=== PATIENT | female | born 1950 | race Caucasian/White ===

== ENCOUNTER 2020-12-12 22:41 | Emergency (ER) | payer MEDICARE, OTHER ==
[~2020-12-12] VITALS: Ht 167.6 cm; Wt 65.9 kg
[2020-12-12] MEDS ORDERED: fentaNYL PF VIAL 100 MCG/2 ML VIAL IVP ONE (22:45)
[2020-12-12 23:29] LABS: BILIRUBIN,URINE NEGATIVE (NEG); CLARITY,URINE CLEAR; COLOR,URINE YELLOW; NITRITE,URINE NEGATIVE (NEG); PH,URINE 6.5 (<5.0-8.0); PROTEIN,URINE NEGATIVE (NEG-TRACE); UROBILINOGEN,URINE 0.2 mg/dL (0.2 mg/dL)
[2020-12-12 23:30] LABS: BASO # 0.1 x10^3/uL (0.0-0.2); BASO % 1 % (0-3); EOS # 0.4 x10^3/uL (0.0-0.7); EOS % 5 % (0-3); HEMATOCRIT 38.6 % (36.0-47.0); LYMPH # 2.1 x10^3/uL (1.0-4.8); LYMPH % 27 % (24-48); MEAN CORPUSCULAR HEMOGLOBIN 31 pg (25-35); MEAN CORPUSCULAR HGB CONC 34 g/dL (31-37); MEAN CORPUSCULAR VOLUME 93 fL (79-100); MONO # 0.9 x10^3/uL (0.0-1.1); MONO % 11 % (0-9); NEUT # 4.4 x10^3/uL (1.8-7.7); NEUT % 56 % (31-73); PLATELET COUNT 190 x10^3/uL (140-400); RED BLOOD COUNT 4.15 x10^6/uL (3.50-5.40); RED CELL DISTRIBUTION WIDTH 13.3 % (11.5-14.5); WHITE BLOOD COUNT 7.9 x10^3/uL (4.0-11.0)
[2020-12-12 23:34] LABS: AMPHETAMINE/METHAMPHETAMINE NEG (NEG); BARBITURATES NEG (NEG); BENZODIAZEPINES NEG (NEG); CANNABINOIDS NEG (NEG); COCAINE NEG (NEG); METHADONE NEG (NEG); OPIATES NEG (NEG); PHENCYCLIDINE NEG (NEG)
[2020-12-12 23:35] LABS: BACTERIA,URINE 0 /HPF (0-FEW); CALCIUM 10.3 mg/dL (8.5-10.1); CREATININE 1.3 mg/dL (0.6-1.0); GFR 40.7; POTASSIUM 3.7 mmol/L (3.5-5.1); RBC,URINE OCC /HPF (0-2)
[2020-12-12 23:39] LABS: PROTHROMBIN TIME PATIENT 14.6 SEC (11.7-14.0)
--- NOTE | 2020-12-12 23:58 | PHYS DOC ---
Past Medical History Past Medical History: Anxiety, Dementia, Depression, Hypertension Past Surgical History: Cholecystectomy, Hysterectomy Additional Past Surgical Histo: BILATERAL SHOULDER REPLACEMENT, LOWER BACK Smoking Status: Current Every Day Smoker Alcohol Use: None Adult General Chief Complaint Chief Complaint: SHORTNESS OF BREATH HPI HPI Patient is a 70 year old female with an extensive past medical history which is include dementia, hypertension, depression anxiety now presenting the emergency department complaining of right-sided chest pain after a fall. Patient states that she was attempting to get into her chair with her dog when she tripped over her dog and fell onto a wooden floor. Patient notes that she struck the right side of her head and the right side of her chest. Denies any loss of consciousness, blurred vision, numbness or weakness. Denies any back pain, neck pain, abdominal pain. Review of Systems Review of Systems Constitutional: Denies fever or chills [] Eyes: Denies change in visual acuity, redness, or eye pain [] HENT: Denies nasal congestion or sore throat [] Respiratory: Denies cough or shortness of breath [] Cardiovascular: No additional information not addressed in HPI [] GI: Denies abdominal pain, nausea, vomiting, bloody stools or diarrhea [] : Denies dysuria or hematuria [] Musculoskeletal: Denies back pain or joint pain [] Integument: Denies rash or skin lesions [] Neurologic: Denies headache, focal weakness or sensory changes [] Endocrine: Denies polyuria or polydipsia [] All other systems were reviewed and found to be within normal limits, except as documented in this note. Current Medications Current Medications Current Medications Medications (Trade) Dose Ordered Sig/Kim Start Time Stop Time Status Last Admin Dose Admin Fentanyl Citrate (Fentanyl 2ml Vial) 25 mcg 1X ONCE 12/12/20 22:45 12/12/20 23:22 DC 12/12/20 23:26 25 MCG Info (CONTRAST GIVEN -- Rx MONITORING) 1 each PRN DAILY PRN 12/13/20 00:15 12/15/20 00:14 Iohexol (Omnipaque 300 Mg/ml) 60 ml 1X ONCE 12/13/20 00:15 12/13/20 00:16 DC 12/13/20 00:30 60 ML Allergies Allergies Allergies Coded Allergies Type Severity Reaction Last Updated Verified Unable to Assess 12/12/20 No Physical Exam Physical Exam Constitutional: Well developed, well nourished, no acute distress, non-toxic appearance. [] HENT: Normocephalic, 1 cm right eyebrow laceration, bilateral external ears normal, oropharynx moist, no oral exudates, nose normal. [] Eyes: PERRLA, EOMI, conjunctiva normal, no discharge. [] Neck: Normal range of motion, no tenderness, supple, no stridor. [] Cardiovascular:Heart rate regular rhythm, no murmur [] Lungs & Thorax: Bilateral breath sounds clear to auscultation significant right lower anterior chest wall tenderness Abdomen: Bowel sounds normal, soft, no tenderness, no masses, no pulsatile masses. [] Skin: Warm, dry, no erythema, no rash. [] Back: No tenderness, no CVA tenderness. [] Extremities: No tenderness, no cyanosis, no clubbing, ROM intact, no edema. [] Neurologic: Alert and oriented X 3, normal motor function, normal sensory funct ion, no focal deficits noted. [] Psychologic: Affect normal, judgement normal, mood normal. [] Current Patient Data Vital Signs Vital Signs Date Time Temp Pulse Resp B/P (MAP) Pulse Ox O2 Delivery O2 Flow Rate FiO2 12/12/20 23:26 Room Air 12/12/20 23:05 98.2 73 18 158/105 (122) 99 98.2 Lab Values Laboratory Tests Test 12/12/20 23:18 12/12/20 23:23 White Blood Count 7.9 x10^3/uL (4.0-11.0) Red Blood Count 4.15 x10^6/uL (3.50-5.40) Hemoglobin 13.0 g/dL (12.0-15.5) Hematocrit 38.6 % (36.0-47.0) Mean Corpuscular Volume 93 fL (79-100) Mean Corpuscular Hemoglobin 31 pg (25-35) Mean Corpuscular Hemoglobin Concent 34 g/dL (31-37) Red Cell Distribution Width 13.3 % (11.5-14.5) Platelet Count 190 x10^3/uL (140-400) Neutrophils (%) (Auto) 56 % (31-73) Lymphocytes (%) (Auto) 27 % (24-48) Monocytes (%) (Auto) 11 % (0-9) H Eosinophils (%) (Auto) 5 % (0-3) H Basophils (%) (Auto) 1 % (0-3) Neutrophils # (Auto) 4.4 x10^3/uL (1.8-7.7) Lymphocytes # (Auto) 2.1 x10^3/uL (1.0-4.8) Monocytes # (Auto) 0.9 x10^3/uL (0.0-1.1) Eosinophils # (Auto) 0.4 x10^3/uL (0.0-0.7) Basophils # (Auto) 0.1 x10^3/uL (0.0-0.2) Prothrombin Time 14.6 SEC (11.7-14.0) H Prothrombin Time INR 1.2 (0.8-1.1) H Activated Partial Thromboplast Time 33 SEC (24-38) Urine Collection Type Unknown Urine Color Yellow Urine Clarity Clear Urine pH 6.5 (<5.0-8.0) Urine Specific [place] 1.015 (1.000-1.030) Urine Protein Negative mg/dL (NEG-TRACE) Urine Glucose (UA) Negative mg/dL (NEG) Urine Ketones (Stick) Negative mg/dL (NEG) Urine Blood Negative (NEG) Urine Nitrite Negative (NEG) Urine Bilirubin Negative (NEG) Urine Urobilinogen Dipstick 0.2 mg/dL (0.2 mg/dL) Urine Leukocyte Esterase Negative (NEG) Urine RBC Occ /HPF (0-2) Urine WBC 1-4 /HPF (0-4) Urine Squamous Epithelial Cells Occ /LPF Urine Bacteria 0 /HPF (0-FEW) Urine Mucus Slight /LPF Sodium Level 145 mmol/L (136-145) Potassium Level 3.7 mmol/L (3.5-5.1) Chloride Level 108 mmol/L (98-107) H Carbon Dioxide Level 31 mmol/L (21-32) Anion Gap 6 (6-14) Blood Urea Nitrogen 33 mg/dL (7-20) H Creatinine 1.3 mg/dL (0.6-1.0) H Estimated GFR (Cockcroft-Gault) 40.7 Glucose Level 81 mg/dL (70-99) Calcium Level 10.3 mg/dL (8.5-10.1) H Urine Opiates Screen Neg (NEG) Urine Methadone Screen Neg (NEG) Urine Barbiturates Neg (NEG) Urine Phencyclidine Screen Neg (NEG) Urine Amphetamine/Methamphetamine Neg (NEG) Urine Benzodiazepines Screen Neg (NEG) Urine Cocaine Screen Neg (NEG) Urine Cannabinoids Screen Neg (NEG) Ethyl Alcohol Level < 10 mg/dL (0-10) Urine Ethyl Alcohol Neg (NEG) POC Troponin I 0.00 ng/ml (<0.08) Laboratory Tests 12/12/20 23:18 Laboratory Tests 12/12/20 23:18 EKG EKG Right axis deviation, prominent S wave in V3 through V6 which could demonstrate old cardiac scar tissue, currently no ST or T wave changes, no QRS widening, segments normal, no evidence of STEMI Radiology/Procedures Radiology/Procedures See radiology report Course & Med Decision Making Course & Med Decision Making Pertinent Labs and Imaging studies reviewed. (See chart for details) 70F presenting with right eyebrow laceration and right-sided chest pain after mechanical fall. At this time obtain a CT head to make sure there is no intracranial injury. C-spine is cleared by Nexus criteria. Also obtain CT scan of the chest to make sure there is no intrathoracic injury or rib fracture. 0054-CT head negative for any intracranial injury or skull fracture. CT scan of the chest does demonstrate evidence of a mild, nondisplaced rib fracture. I had an extensive discussion with the patient and at this time plan to discharge home with pain control. I spoken with the patient and her caregivers. I explained the patient's condition, diagnoses and treatment plan based on the information available to me at this time. I have answered the patient and her caregiver's questions and addressed any concerns. The patient and her caregivers have a good understanding of patient's diagnosis, condition and treatment plan as can be expected at this point. Vital signs have been stable. Patient's condition is stable and appropriate for discharge from the emergency department. Patient will pursue further outpatient evaluation with primary care physician or other designated or consulting physician as outlined in the discharge instructions. The patient and/or caregivers are agreeable to this plan of care and follow-up instructions have been explained in detail. The patient and/or caregivers have received these instructions in written form and have expressed an understanding of the discharge instructions. The patient and/or caregivers are aware that any significant change of condition or worsening of symptoms should prompt immediate return to this or the closest emergency department or call to 911. Lynn Disclaimer Dragon Disclaimer This electronic medical record was generated, in whole or in part, using a voice recognition dictation system. Departure Departure Impression: Primary Impression: Right rib fracture Disposition: 01 DC HOME SELF CARE/HOMELESS Condition: GOOD Referrals: TOMASZ LORENZO NP (PCP) Patient Instructions: Rib Fracture Additional Instructions: EMERGENCY DEPARTMENT GENERAL DISCHARGE INSTRUCTIONS Thank you for coming to [facility] Emergency Department (ED) today and trusting us with you care. We trust that you had a positive experience in our Emergency Department. If you wish to speak to the department management, you may call the Director at [phone]. YOUR FOLLOW UP INSTRUCTIONS ARE FOLLOWS: 1. Do you have a private Doctor? If you do not have a private doctor, please ask for a resource list of physicians or clinics that may be able to assist you with follow up care. 2. The Emergency Physicain has interpreted your x-rays. The X-Ray specialist will also review them. If there is a change in the findings, you will be notified in 48 hours when at all possible. 3. A lab test or culture has been done, your results will be reviewed and you will be notified if you need a change in treatment. ADDITIONAL INSTRUCTIONS AND INFORMATION: 1. Your care today has been supervised by a physician who is specially trained in emergency care. Many problems require more than one evaluation for a complete diagnosis and treatment. We recommend that you schedule your follow up appointment as recommended to ensure complete treatment of you illness or injury. If you are unable to obtain follow up care and continue to have a problem, or if your condition worsens, we recommend that you return to the ED. 2. We are not able to safely determine your condition over the phone nor are we able to give sound medical advice over the phone. For these safety reasons, if you call for medical advice we will ask you to come to the ED for further evaluation. 3. If you have any questions regarding these discharge instructions please call the ED at [phone]. SAFETY INFORMATION: In the interest of safety, wellness, and injury prevention; we encourage you to wear your sealbelt, if you smoke; quite smoking, and we encourage family to use a protective helmet for bicycling and other sporting events that present an increased risk for head injury. IF YOUR SYMPTOMS WORSEN OR NEW SYMPTOMS DEVELOP, OR YOU HAVE CONCERNS ABOUT YOUR CONDITION; OR IF YOUR CONDITION WORSENS WHILE YOU ARE WAITING FOR YOUR FOLLOW UP APPOINTMENT; EITHER CONTACT YOUR PRIMARY CARE DOCTOR, THE PHYSICIAN WHOSE NAME AND NUMBER YOU WERE GIVEN, OR RETURN TO THE ED IMMEDIATELY. Scripts Oxycodone/Apap 5-325 (PERCOCET 5-325 MG TABLET ) 1 Each Tablet 1 TAB PO PRN Q6HRS PRN for PAIN, #12 TAB 0 Refills Prov: YAMILA PATTEN MD 12/13/20 YAMILA PATTEN MD Dec 12, 2020 23:58
[2020-12-13] MEDS ORDERED: CONTRAST GIVEN. MC PRN (00:15)
[2020-12-13] MEDS ORDERED: IOHEXOL 300 MG/ML 100ML VIAL. IV ONE (00:15)
--- NOTE | 2020-12-13 00:36 | RAD ---
PQRS Compliance Statement: One or more of the following individualized dose reduction techniques were utilized for this examinat ion: 1. Automated exposure control 2. Adjustment of the mA and/or kV according to patient size 3. Use of iterative reconstruction technique CT HEAD WITHOUT CONTRAST History: Reason: fall / Spl. Instructions: / History: Comparison: None. Technique: Axial images are obtained of the head from the skull base through the vertex without IV co ntrast. Findings: No mass-effect, midline shift, extra-axial fluid collection, hemorrhage, or obvious acute infarction is identified. Basilar cisterns are patent. The ventricles and sulci are prominent, consistent with age-related cerebral atrophy. There is perive ntricular white matter hypoattenuation. This is a nonspecific finding but is commonly due to chronic small vessel ischemic disease. Bone windows demonstrate no acute calvarial abnormality. The visualized paranasal sinuses are clear. Mastoid air cells are well aerated. IMPRESSION: 1. No acute intracranial abnormality. 2. Age-related cerebral atrophy and periventricular white matter changes probably due to chronic sma ll vessel ischemic disease. Electronically signed by: Sánchez Whitaker MD (12/13/2020 12:33 AM) [facility]
--- NOTE | 2020-12-13 00:45 | RAD ---
PQRS Compliance Statement: One or more of the following individualized dose reduction techniques were utilized for this examinat ion: 1. Automated exposure control 2. Adjustment of the mA and/or kV according to patient size 3. Use of iterative reconstruction technique CT THORAX WO/W Clinical Indication: Reason: fall, RT SIDE RIB PAIN, Comparison: None. TECHNIQUE: Helical CT imaging of the chest is performed before and after 60 cc of Omnipaque 300 IV co ntrast. Findings: No acute intramural hematoma of the aorta is identified on the precontrast images. There is no thorac ic aortic dissection. There is a possible nodule of the lateral subareolar right breast measuring 1.9 cm. There are subcent imeter mediastinal lymph nodes. There is no adenopathy. There are no enlarged hilar lymph nodes. Ther e is no central pulmonary embolus. There is coronary artery disease. The cardiac size is normal, no p ericardial effusion. There is no pleural abnormality. The central airways are patent. Mild paraseptal emphysema. There is minimal bilateral dependent atelectasis. There is no pulmonary contusion. Cholecystectomy. There is cortical thinning of the visualized kidneys. There is a 2 cm hypodensity of the posterior right kidney that is not definitely a cyst. There are sub-5 mm bilateral nonobstructin g renal calculi versus medullary nephrocalcinosis. There is a 9 mm hypodensity in the right hepatic l obe, too small to further characterize, image 55. There are bilateral shoulder arthroplasties, incompletely imaged. An acute displaced rib fracture is not identified. Question subtle nondisplaced right anterolateral sixth rib fracture. There is degener ative endplate spurring of the thoracic spine. Thoracic spine alignment is maintained. IMPRESSION: 1. Question subtle nondisplaced right anterolateral sixth rib fracture. 2. Lungs essentially clear. 3. Possible nodule of the lateral subareolar right breast. Recommend outpatient bilateral diagnostic mammogram if not recently performed. 4. There is a 2 cm hypodensity of the posterior right kidney that is not definitely a cyst. Recommen d outpatient renal ultrasound. Electronically signed by: Sánchez Whitaker MD (12/13/2020 12:43 AM) [facility]
[2020-12-13] MEDS ORDERED: OXYC1TAB15 PO (00:57)
[2020-12-13] MEDS ORDERED: MORPHINE SULFATE 4 MG/ML VIAL. IV ONE (01:00)
[2020-12-13 01:25] VITALS: BP 155/66
== END 2020-12-13 01:39 | disposition home or self-care (01) ==
LOC: ER 22:41
DX: S22.31XA Fracture of one rib, right side, initial encounter for closed fracture (principal); F41.9 Anxiety disorder, unspecified; F03.90 Unspecified dementia, unspecified severity, without behavioral disturbance, psychotic disturbance, mood disturbance, and anxiety; F32.9 Major depressive disorder, single episode, unspecified; I10 Essential (primary) hypertension; F17.200 Nicotine dependence, unspecified, uncomplicated; Z90.49 Acquired absence of other specified parts of digestive tract; Z90.710 Acquired absence of both cervix and uterus; Z98.890 Other specified postprocedural states; W01.0XXA Fall on same level from slipping, tripping and stumbling without subsequent striking against object, initial encounter; Y93.89 Activity, other specified; Y92.89 Other specified places as the place of occurrence of the external cause; Y99.8 Other external cause status
CPT/HCPCS: 36415; 70450; 71270; 80048; 80307; 81001; 84484; 85025; 85610; 85730; 86850; 86900; 86901; 96374; 96375; 99285; G0480; J2270; J3010; Q9967

== ENCOUNTER 2021-06-12 10:58 | Emergency (ER) | payer MEDICARE ==
[~2021-06-12] VITALS: Ht 167.6 cm; Wt 58.0 kg
[~2021-06-12 10:58] MED LIST: OXYC1TAB15 PO
--- NOTE | 2021-06-12 12:41 | RAD ---
CT scan of the head without contrast 09/12/2021 Clinical History: Head injury. Technique: Unenhanced, contiguous, 5 mm axial sections were obtained through the head. One or more of the following individualized dose reduction techniques were utilized for this study: 1. Automated exposure control. 2. Adjustment of the mA and/or kV according to patient size. 3. Use of iterative reconstruction technique. Findings: Comparison study is dated 12/13/2020. There is generalized parenchymal atrophy. Areas of decreased attenuation are seen within the perivent ricular and subcortical white matter of both cerebral hemispheres consistent with areas of small vess el ischemic disease. No acute parenchymal abnormality is seen. No extra-axial fluid collection is not ed. No skull fracture is seen. Impression: No acute intracranial abnormality is seen. Electronically signed by: Ney James MD (06/12/2021 12:39 PM) [id number]
--- NOTE | 2021-06-12 12:53 | ED.ADGEN ---
Past Medical History Past Medical History: Anxiety, Dementia, Depression, Hypertension Past Surgical History: Cholecystectomy, Hysterectomy, Other Additional Past Surgical Histo: BILATERAL SHOULDER REPLACEMENT, LOWER BACK, L knee Smoking Status: Never Smoker Alcohol Use: None General Adult EDM: Chief Complaint: MECHANICAL FALL HPI: HPI: Patient is a 71 year old [f__sex] who presents with [] Review of Systems: Review of Systems: Complete ROS is negative unless otherwise documented in HPI Current Medications: Current Medications Medications (Trade) Dose Ordered Sig/Kim Start Time Stop Time Status Last Admin Dose Admin Acetaminophen (Tylenol) 650 mg 1X ONCE 06/12/21 13:30 06/12/21 13:31 DC 06/12/21 13:23 650 MG Diphtheria/ Tetanus/Acell Pertussis (ADACEL TDap SYRINGE) 0.5 ml ONCE ONCE 06/12/21 13:00 06/12/21 13:01 DC 06/12/21 13:17 0.5 ML Allergies: Allergies: Allergies Coded Allergies Type Severity Reaction Last Updated Verified Penicillins Allergy Unknown 06/12/21 Yes Physical Exam: PE: General: Awake, alert, NAD. Well Nourished, well hydrated. Cooperative HEENT: V-shaped laceration to left forehead with minimal oozing, EOMI, PERRL, airway patent, moist oral mucosa, no nasal septal hematoma, no facial crepitus or deformity Neck: Supple, trachea midline, no C-spine tenderness Respiratory: CTA bilaterally, normal effort, no wheezing/crackles, no crepitus CV: RRR, no murmur, cap refill <2, 2+ bilateral radial/DP pulses GI: Soft, nondistended, nontender, no masses MSK: No deformities, pelvis stable and nontender Skin: Warm, dry, abrasion to left elbow, abrasion to right knee Neuro: A&O x3, speech NL, sensory and motor grossly intact, no focal deficits Psych: Normal affect, normal mood, not suicidal or homicidal Current Patient Data: Vital Signs: Vital Signs Date Time Temp Pulse Resp B/P (MAP) Pulse Ox O2 Delivery O2 Flow Rate FiO2 06/12/21 13:35 68 16 160/86 (110) 98 Room Air 06/12/21 11:40 98.2 98.2 EKG: EKG: [] Heart Score: C/O Chest Pain: N/A Risk Factors: Risk Factors: DM, Current or recent (<one month) smoker, HTN, HLP, family history of CAD, obesity. Risk Scores: Score 0 - 3: 2.5% MACE over next 6 weeks - Discharge Home Score 4 - 6: 20.3% MACE over next 6 weeks - Admit for Clinical Observation Score 7 - 10: 72.7% MACE over next 6 weeks - Early Invasive Strategies Radiology/Procedures: Radiology/Procedures: [] Course & Med Decision Making: Course & Med Decision Making Pertinent Labs and Imaging studies reviewed. (See chart for details) Patient is a 71yo elderly female who presents to the ED after a mechanical fall from standing. On exam, patient has a laceration to the forehead. Due to patient's age and head trauma they cannot be ruled out with bulgarian CT head rule and will need a CT head to evaluate for intracranial bleed and a CT cervical spine. No signs of major facial injuries and a CT maxillofacial is not needed at this time. Patient did not have any symptoms concerning for a presyncopal episode. They deny chest pain, palpitations, dizziness, headache, shortness of breath, recent bleeding, numbness/weakness in extremities or face. They do not need a syncope work up at this time. CT is negative. Tetanus was updated. Wounds were cleaned and covered. Dermabond was placed on laceration. Patient's test results and vitals while in the ED were fully reviewed and discussed with the patient. Patient is stable and at this time does not need admission to the hospital. We have discussed strict return precautions and the importance of following up with their Primary Care Physician. Patient stated understanding and was given an opportunity to ask any questions. Patient is in agreement with plan. Dragon Disclaimer: Dragmisty Disclaimer: This electronic medical record was generated, in whole or in part, using a voice recognition dictation system. PROCEDURE Procedure Laceration Repair Performed by: Melissa Stoner MD Consent: obtained verbally from patient. Risks and benefits were discussed prior to consent Time out performed prior to procedure Location: Left forehead Length: 2 Foreign bodies: No foreign bodies Tendon involvement: none Neurovascularly intact Preparation: Patient was prepped and draped in usual sterile fashion. Wound was cleaned extensively with water Amount of clean: normal Deep stitches: no Skin closure: dermabond Approximation: closed Patient tolerated procedure well Departure Departure Impression: Primary Impression: Closed head injury Disposition: HOME / SELF CARE / HOMELESS Condition: STABLE Referrals: TOMASZ LORENZO NP (PCP) Patient Instructions: Head Injury, Adult, Laceration Care, Adult MELISSA STONER MD Jun 12, 2021 12:53
[2021-06-12] MEDS ORDERED: DIPH,PERTUSS(ACELL),TET VAC/PF 0.5 ML SYRINGE. VAX IM ONE (13:00)
[2021-06-12] MEDS ORDERED: ACETAMINOPHEN 325 MG TABLET. PO ONE (13:30)
[2021-06-12 13:35] VITALS: BP 160/86
== END 2021-06-12 13:45 | disposition home or self-care (01) ==
LOC: ER 10:58
DX: S01.81XA Laceration without foreign body of other part of head, initial encounter (principal); I10 Essential (primary) hypertension; F03.90 Unspecified dementia, unspecified severity, without behavioral disturbance, psychotic disturbance, mood disturbance, and anxiety; Z88.0 Allergy status to penicillin; Y28.8XXA Contact with other sharp object, undetermined intent, initial encounter; Y93.89 Activity, other specified; Y92.89 Other specified places as the place of occurrence of the external cause; Y99.8 Other external cause status
CPT/HCPCS: 12011; 70450; 90471; 90715; 99284-25

== ENCOUNTER → 2021-06-24 | Outpatient (CLI) | payer MEDICARE ==
[2021-06-12 13:35] VITALS: BP 160/86
--- NOTE | 2021-06-24 12:53 | RAD ---
EXAM: Right knee, 3 views. HISTORY: Pain. COMPARISON: None. FINDINGS: 3 views of the right knee are obtained. There is medial compartment joint space narrowing a nd moderate medial compartment spurring. There is medial and lateral compartment chondrocalcinosis. T here is a small joint effusion. IMPRESSION: 1. Moderate medial compartment predominant osteoarthritis of the right knee with small joint effusion . 2. No acute osseous finding. Electronically signed by: Liz Dodd MD (06/24/2021 12:51 PM) [id number]
== END ==
LOC: RAD 11:58
PROVIDERS: ATTEND Family Medicine
DX: M17.11 Unilateral primary osteoarthritis, right knee (principal); M25.461 Effusion, right knee; M25.861 Other specified joint disorders, right knee; M76.891 Other specified enthesopathies of right lower limb, excluding foot; M11.261 Other chondrocalcinosis, right knee; M25.561 Pain in right knee
CPT/HCPCS: 73562

== ENCOUNTER 2022-01-24 20:26 | Inpatient (IN) | payer MEDICARE ==
[~2022-01-24] VITALS: Ht 167.6 cm; Wt 56.8 kg
[2022-01-24] MEDS ORDERED: cefTRIAXone IV Push 1 GM VIAL. IVP ONE (20:45)
[2022-01-24] MEDS ORDERED: ACETAMINOPHEN 650 MG SUPP.RECT. PR ONE (20:45)
[2022-01-24] MEDS ORDERED: IV NORMAL SALINE 1000ML BAG 1,000 ML IV ONE (20:45)
[2022-01-24 20:54] LABS: BILIRUBIN,URINE NEGATIVE (NEG); CLARITY,URINE CLOUDY; COLOR,URINE YELLOW; NITRITE,URINE POSITIVE (NEG); PROTEIN,URINE TRACE mg/dL (NEG-TRACE); UROBILINOGEN,URINE 0.2 mg/dL (0.2 mg/dL)
[2022-01-24 20:56] LABS: BACTERIA,URINE MANY /HPF (0-FEW); WBC,URINE TNTC /HPF (0-4)
--- NOTE | 2022-01-24 21:01 | PHYS DOC ---
Past Medical History Past Medical History: Anxiety, Dementia, Depression, Hypertension Past Surgical History: Cholecystectomy, Hysterectomy, Other Additional Past Surgical Histo: BILATERAL SHOULDER REPLACEMENT, LOWER BACK, L knee Smoking Status: Never Smoker Alcohol Use: None General Adult HPI: HPI: Patient is a 72 year old female with past medical history Alzheimer's dementia presents for evaluation of altered mental status and fever. History obtained from significant other who states she noticed patient with onset of weakness yesterday. Weakness has progressed today patient now requires assistance to get to and from the bathroom. On arrival patient is febrile with a temperature 104. Patient is alert but very lethargic. Patient tracks with her eyes moves all extremities answers yes no to questions. Significant other states patient usually ambulates without assist is alert and very conversive. Review of Systems: Review of Systems: Unable to obtain due to altered mental status and dementia Heart Score: C/O Chest Pain: N/A Risk Factors: Risk Factors: DM, Current or recent (<one month) smoker, HTN, HLP, family history of CAD, obesity. Risk Scores: Score 0 - 3: 2.5% MACE over next 6 weeks - Discharge Home Score 4 - 6: 20.3% MACE over next 6 weeks - Admit for Clinical Observation Score 7 - 10: 72.7% MACE over next 6 weeks - Early Invasive Strategies Current Medications: Current Medications Medications (Trade) Dose Ordered Sig/Kim Start Time Stop Time Status Last Admin Dose Admin Acetaminophen (Tylenol Supp) 650 mg 1X ONCE 01/24/22 20:45 01/24/22 20:46 DC 01/24/22 20:45 650 MG Ceftriaxone Sodium (Rocephin) 1 gm 1X ONCE 01/24/22 20:45 01/24/22 20:46 DC 01/24/22 20:45 1 GM Sodium Chloride 1,000 ml @ 1,000 mls/hr 1X ONCE 01/24/22 20:45 01/24/22 21:44 01/24/22 20:45 1,000 MLS/HR Allergies: Allergies: Allergies Coded Allergies Type Severity Reaction Last Updated Verified Penicillins Allergy Unknown 06/12/21 Yes Physical Exam: PE: Constitutional: Well developed, well nourished, no acute distress, lethargic HENT: Normocephalic, atraumatic, bilateral external ears normal, oropharynx moist, no oral exudates, nose normal. [] Eyes: PERRLA, EOMI, conjunctiva normal, no discharge. [] Neck: Normal range of motion, no tenderness, supple, no stridor. [] Cardiovascular: Tachycardic Lungs & Thorax: Bilateral breath sounds clear to auscultation [] Abdomen: Bowel sounds normal, soft, no tenderness, no masses, no pulsatile masses. [] Skin: Warm, dry, no erythema, no rash. [] Back: No tenderness, no CVA tenderness. [] Extremities: No tenderness, no cyanosis, no clubbing, ROM intact, no edema. [] Neurologic: Alert normal motor function, normal sensory function, no focal deficits noted. [] Current Patient Data: Labs: Laboratory Tests Test 01/24/22 20:36 Urine Collection Type Unknown Urine Color Yellow Urine Clarity Cloudy Urine pH 7.0 (<5.0-8.0) Urine Specific [place] 1.020 (1.000-1.030) Urine Protein Trace mg/dL (NEG-TRACE) Urine Glucose (UA) Negative mg/dL (NEG) Urine Ketones (Stick) Negative mg/dL (NEG) Urine Blood Moderate (NEG) Urine Nitrite Positive (NEG) Urine Bilirubin Negative (NEG) Urine Urobilinogen Dipstick 0.2 mg/dL (0.2 mg/dL) Urine Leukocyte Esterase Large (NEG) Urine RBC 6-10 /HPF (0-2) Urine WBC Tntc /HPF (0-4) Urine Bacteria Many /HPF (0-FEW) Urine Mucus Slight /LPF EKG: EKG: Performed at 2057 Rate [address] elevation No ST depression No acute OK [] Radiology/Procedures: Radiology/Procedures: [] Course & Med Decision Making: Course & Med Decision Making Pertinent Labs and Imaging studies reviewed. (See chart for details) [] Patient was evaluated for chief complaint. Results reviewed and discussed with significant other. Patient's creatinine noted to be elevated at 1.2 patient's urine consistent with urinary tract infection. Patient was treated with Rocephin and IV fluids and Tylenol. Patient admitted to hospitalist for further evaluation and treatment. Dragon Disclaimer: Dragon Disclaimer: This electronic medical record was generated, in whole or in part, using a voice recognition dictation system. Departure Departure Impression: Primary Impression: Fever Additional Impressions: UTI (urinary tract infection) Altered mental status Disposition: 09 ADMITTED INPATIENT Admitting Physician: RUDDY Condition: STABLE Referrals: TOMASZ LORENZO NP (PCP) GISELA ALLEN DO Jan 24, 2022 21:01
[2022-01-24 21:03] LABS: INFLUENZA A PATIENT NEGATIVE (NEGATIVE); INFLUENZA B PATIENT NEGATIVE (NEGATIVE)
[2022-01-24 21:03] LABS: BASO # 0.1 x10^3/uL (0.0-0.2); BASO % 1 % (0-3); EOS % 0 % (0-3); HEMATOCRIT 40.9 % (36.0-47.0); HEMOGLOBIN 13.3 g/dL (12.0-15.5); LYMPH # 0.2 x10^3/uL (1.0-4.8); LYMPH % 1 % (24-48); MEAN CORPUSCULAR HEMOGLOBIN 29 pg (25-35); MEAN CORPUSCULAR HGB CONC 33 g/dL (31-37); MEAN CORPUSCULAR VOLUME 90 fL (79-100); MONO # 0.5 x10^3/uL (0.0-1.1); MONO % 4 % (0-9); NEUT % 93 % (31-73); PLATELET COUNT 302 x10^3/uL (140-400); RED BLOOD COUNT 4.55 x10^6/uL (3.50-5.40); RED CELL DISTRIBUTION WIDTH 13.3 % (11.5-14.5); WHITE BLOOD COUNT 11.9 x10^3/uL (4.0-11.0)
[2022-01-24 21:12] LABS: CALCIUM 10.3 mg/dL (8.5-10.1); CREATININE 1.2 mg/dL (0.6-1.0); GFR 44.4
[2022-01-24 21:18] LABS: ALBUMIN 3.8 g/dL (3.4-5.0); ALBUMIN/GLOBULIN RATIO 1.2 (1.0-1.7); TOTAL BILIRUBIN 0.9 mg/dL (0.2-1.0)
[2022-01-24 21:24] LABS: % ATYL 1 % (0-0); % BANDS 3 % (0-9); % EOS 1 % (0-5); % LYMPHS 5 % (24-48); % MONOS 2 % (0-10); % MYELOS 1 % (0-0); % SEGS 87 % (35-66); BURR CELLS PRESENT; PLT ESTIMATE ADEQUATE (ADEQUATE)
[2022-01-24] MEDS ORDERED: ONDANSETRON PF 4 MG/2 ML VIAL. IVP PRN (21:45)
--- NOTE | 2022-01-24 22:06 | RAD ---
INDICATION: Reason: altered mental status / Spl. Instructions: / History: COMPARISON: May 2021 TECHNIQUE: Axial CT images obtained through the head without intravenous contrast. One or more of the following individualized dose reduction techniques were utilized for this examinat ion: 1. Automated exposure control; 2. Adjustment of the mA and/or kV according to patient size; 3 . Use of iterative reconstruction technique. FINDINGS: No intracranial hemorrhage. No significant midline shift. Ventricles and sulci are globally prominent. Scattered foci of low attenuation within the white matter. IMPRESSION: * No acute intracranial hemorrhage. * Scattered regions of low attenuation within the white matter. Non-specific in nature but a common finding and frequently secondary to small vessel ischemic disease. This includes region of relative low density in the left cerebral hemisphere near the vertex. This appears slightly more prominent donald n on prior examination and may be helpful to obtain a follow-up MRI to further assess and ensure that there is no acute cause such as edema contributing to this appearance. * Diffuse prominence of the ventricles and sulci. Could be secondary to age-related volume loss but would correlate with symptoms to ensure there is not a superimposed pathologic causes such as normal pressure hydrocephalus. * Calcific atherosclerosis. Electronically signed by: Scot Samson MD (01/24/2022 10:04 PM) [id number]
--- NOTE | 2022-01-24 22:56 | RAD ---
XR CHEST 1V History: Reason: fever / Spl. Instructions: / History: Comparison: None. Findings: No consolidation or pleural effusion. Normal heart size. No pneumothorax. Bilateral shoulder arthropl asties. Impression: 1. No acute cardiopulmonary process. Electronically signed by: Rafael Leon DO (01/24/2022 10:54 PM) [facility] [place]
[2022-01-25] VITALS (8 sets, daily range): BP systolic 136–162; BP diastolic 70–85
[2022-01-25] MEDS ORDERED: MIRT45TA58 PO (00:49)
[2022-01-25] MEDS ORDERED: COLL226C TP (00:49)
[2022-01-25] MEDS ORDERED: ATOR80TA72 PO (00:49)
[2022-01-25] MEDS ORDERED: MEMA10TA PO (00:49)
[2022-01-25] MEDS ORDERED: ACET325T21 PO (00:49)
[2022-01-25] MEDS ORDERED: CHOL10004 PO (00:49)
[2022-01-25] MEDS ORDERED: MELA10CA PO (00:49)
[2022-01-25] MEDS ORDERED: LOSA25TA PO (00:49)
[2022-01-25] MEDS ORDERED: TRAZ-123 PO (00:49)
[2022-01-25] MEDS ORDERED: DONE10TA7 PO (00:49)
[2022-01-25] MEDS ORDERED: DULO60CA45 PO (00:49)
[2022-01-25] MEDS ORDERED: HALO5TAB PO (00:49)
[2022-01-25] MEDS ORDERED: CARV6.2511 PO (00:49)
--- NOTE | 2022-01-25 05:26 | EKG ---
[facility] [address] [place] [address] Test Date: 2022-01-24 Test Time: 20:57:54 Pat Name: YOLANDA GILLIS Department: Room: 528 1 Gender: F Osha Inspector: : 1950 Requested By: GISELA ALLEN Order Number: [id number] Reading MD: Narayan Gasca Measurements Intervals [place] Rate: 114 P: -73 WI: 108 QRS: 10 QRSD: 86 T: 38 QT: 312 QTc: 433 Interpretive Statements ECTOPIC ATRIAL TACHYCARDIA Electronically Signed On 01-26-2022 8:31:41 [employer]ILY [employer] by Narayan Gasca
--- NOTE | 2022-01-25 09:32 | PDOC1 ---
History and Physical Date of Admission Date of Admission DATE: 01/25/22 TIME: 09:31 Source Source: Chart review History of Present Illness History of Present Illness Patient is a 72 year old female with past medical history Alzheimer's dementia presents for evaluation of altered mental status and fever. History obtained from significant other who states she noticed patient with onset of weakness yesterday. Weakness has progressed today patient now requires assistance to get to and from the bathroom. On arrival patient is febrile with a temperature 104. Patient is alert but very lethargic. Patient tracks with her eyes moves all extremities answers yes no to questions. Significant other states patient usually ambulates without assist is alert and very conversive. Past Medical History Cardiovascular: HTN CENTRAL NERVOUS SYSTEM: Dementia Social History Smoke: No ALCOHOL: none Current Problem List Problem List Problems Medical Problems: (1) Altered mental status Status: Acute (2) Fever Status: Acute (3) Sepsis Status: Acute (4) UTI (urinary tract infection) Status: Acute Current Medications Current Medications Current Medications Ceftriaxone Sodium (Rocephin) 1 gm 1X ONCE IVP Last administered on 01/24/22at 20:45; Start 01/24/22 at 20:45; Stop 01/24/22 at 20:46; Status DC Sodium Chloride 1,000 ml @ 1,000 mls/hr 1X ONCE IV Last administered on 01/24/22at 20:45; Start 01/24/22 at 20:45; Stop 01/24/22 at 21:45; Status DC Acetaminophen (Tylenol Supp) 650 mg 1X ONCE [place] Last administered on 01/24/22at 20:45; Start 01/24/22 at 20:45; Stop 01/24/22 at 20:46; Status DC Ondansetron HCl (Zofran) 4 mg PRN Q8HRS PRN IVP NAUSEA/VOMITING; Start 01/24/22 at 21:45; Stop 01/25/22 at 21:44 Active Scripts Active Reported Vitamin D3 (Vitamin D) 25 Mcg Tablet 50 Mcg PO DAILY 1,000 UNITS = 25 MCG Trazodone Hcl 100 Mg Tablet 1 Tab PO QHS Namenda (Memantine Hcl) 10 Mg Tablet 1 Tab PO BID Mirtazapine 45 Mg Tablet 1 Tab PO QHS Melatonin 10 Mg Capsule 1 Cap PO QHS 30 Days Cozaar (Losartan Potassium) 25 Mg Tablet 25 Mg PO DAILY Haloperidol 5 Mg Tablet 0.5 Tab PO BID Eucerin Eczema Relief (Colloidal Oatmeal) 226 Gm Cream..g. 1 Josse TP PRN DAILY PRN 30 Days Duloxetine Hcl 60 Mg Capsule.dr 60 Mg PO DAILY Donepezil Hcl 10 Mg Tablet 1 Tab PO DAILY Carvedilol (Carvedilol) 6.25 Mg Tablet 6.25 Mg PO BIDWMEALS Atorvastatin Calcium 80 Mg Tablet 80 Mg PO QHS Acetaminophen 325 Mg Tablet 2 Tab PO PRN Q6HRS PRN 30 Days Allergies Allergies: Coded Allergies: Penicillins (Verified Allergy, Unknown, 06/12/21) ROS Review of System unable due to dementia, Musculoskeletal: Yes Muscular Weakness (appearance) Physical Exam General: Alert, Cooperative, mild distress HEENT: PERRLA, EOMI Lungs: Clear to auscultation Heart: RRR Abdomen: Soft Rectal Exam: not examined Extremities: No clubbing, Normal pulses Skin: No rashes Neuro: Normal speech, Normal tone Psych/Mental Status: Mood NL Vitals Vitals Vital Signs Date Time Temp Pulse Resp B/P (MAP) Pulse Ox O2 Delivery O2 Flow Rate FiO2 01/25/22 07:00 101.1 86 16 143/70 (94) 97 101.1 01/25/22 03:05 Room Air Labs Labs Laboratory Tests Test 01/24/22 20:36 01/24/22 20:40 01/24/22 20:45 Urine Collection Type Unknown Urine Color Yellow Urine Clarity Cloudy Urine pH 7.0 (<5.0-8.0) Urine Specific [place] 1.020 (1.000-1.030) Urine Protein Trace mg/dL (NEG-TRACE) Urine Glucose (UA) Negative mg/dL (NEG) Urine Ketones (Stick) Negative mg/dL (NEG) Urine Blood Moderate (NEG) Urine Nitrite Positive (NEG) Urine Bilirubin Negative (NEG) Urine Urobilinogen Dipstick 0.2 mg/dL (0.2 mg/dL) Urine Leukocyte Esterase Large (NEG) Urine RBC 6-10 /HPF (0-2) Urine WBC Tntc /HPF (0-4) Urine Bacteria Many /HPF (0-FEW) Urine Mucus Slight /LPF Influenza Type A Antigen Negative (NEGATIVE) Influenza Type B Antigen Negative (NEGATIVE) SARS-CoV-2 Antigen (Rapid) Negative (NEGATIVE) White Blood Count 11.9 x10^3/uL (4.0-11.0) Red Blood Count 4.55 x10^6/uL (3.50-5.40) Hemoglobin 13.3 g/dL (12.0-15.5) Hematocrit 40.9 % (36.0-47.0) Mean Corpuscular Volume 90 fL (79-100) Mean Corpuscular Hemoglobin 29 pg (25-35) Mean Corpuscular Hemoglobin Concent 33 g/dL (31-37) Red Cell Distribution Width 13.3 % (11.5-14.5) Platelet Count 302 x10^3/uL (140-400) Neutrophils (%) (Auto) 93 % (31-73) Lymphocytes (%) (Auto) 1 % (24-48) Monocytes (%) (Auto) 4 % (0-9) Eosinophils (%) (Auto) 0 % (0-3) Basophils (%) (Auto) 1 % (0-3) Neutrophils # (Auto) 11.0 x10^3/uL (1.8-7.7) Lymphocytes # (Auto) 0.2 x10^3/uL (1.0-4.8) Monocytes # (Auto) 0.5 x10^3/uL (0.0-1.1) Eosinophils # (Auto) 0.0 x10^3/uL (0.0-0.7) Basophils # (Auto) 0.1 x10^3/uL (0.0-0.2) Segmented Neutrophils % 87 % (35-66) Band Neutrophils % 3 % (0-9) Lymphocytes % 5 % (24-48) Atypical Lymphocytes % (Manual) 1 % (0-0) Monocytes % 2 % (0-10) Eosinophils % 1 % (0-5) Myelocytes % 1 % (0-0) Platelet Estimate Adequate (ADEQUATE) Kiki Cells Present Sodium Level 141 mmol/L (136-145) Potassium Level 4.0 mmol/L (3.5-5.1) Chloride Level 103 mmol/L (98-107) Carbon Dioxide Level 30 mmol/L (21-32) Anion Gap 8 (6-14) Blood Urea Nitrogen 16 mg/dL (7-20) Creatinine 1.2 mg/dL (0.6-1.0) Estimated GFR (Cockcroft-Gault) 44.4 BUN/Creatinine Ratio 13 (6-20) Glucose Level 134 mg/dL (70-99) Lactic Acid Level 1.2 mmol/L (0.4-2.0) Calcium Level 10.3 mg/dL (8.5-10.1) Total Bilirubin 0.9 mg/dL (0.2-1.0) Aspartate Amino Transf (AST/SGOT) 21 U/L (15-37) Alanine Aminotransferase (ALT/SGPT) 32 U/L (14-59) Alkaline Phosphatase 90 U/L (46-116) Troponin I High Sensitivity 16 ng/L (4-50) Total Protein 7.0 g/dL (6.4-8.2) Albumin 3.8 g/dL (3.4-5.0) Albumin/Globulin Ratio 1.2 (1.0-1.7) Laboratory Tests Test 01/24/22 20:36 01/24/22 20:40 01/24/22 20:45 Urine Collection Type Unknown Urine Color Yellow Urine Clarity Cloudy Urine pH 7.0 (<5.0-8.0) Urine Specific [place] 1.020 (1.000-1.030) Urine Protein Trace mg/dL (NEG-TRACE) Urine Glucose (UA) Negative mg/dL (NEG) Urine Ketones (Stick) Negative mg/dL (NEG) Urine Blood Moderate (NEG) Urine Nitrite Positive (NEG) Urine Bilirubin Negative (NEG) Urine Urobilinogen Dipstick 0.2 mg/dL (0.2 mg/dL) Urine Leukocyte Esterase Large (NEG) Urine RBC 6-10 /HPF (0-2) Urine WBC Tntc /HPF (0-4) Urine Bacteria Many /HPF (0-FEW) Urine Mucus Slight /LPF Influenza Type A Antigen Negative (NEGATIVE) Influenza Type B Antigen Negative (NEGATIVE) SARS-CoV-2 Antigen (Rapid) Negative (NEGATIVE) White Blood Count 11.9 x10^3/uL (4.0-11.0) Red Blood Count 4.55 x10^6/uL (3.50-5.40) Hemoglobin 13.3 g/dL (12.0-15.5) Hematocrit 40.9 % (36.0-47.0) Mean Corpuscular Volume 90 fL (79-100) Mean Corpuscular Hemoglobin 29 pg (25-35) Mean Corpuscular Hemoglobin Concent 33 g/dL (31-37) Red Cell Distribution Width 13.3 % (11.5-14.5) Platelet Count 302 x10^3/uL (140-400) Neutrophils (%) (Auto) 93 % (31-73) Lymphocytes (%) (Auto) 1 % (24-48) Monocytes (%) (Auto) 4 % (0-9) Eosinophils (%) (Auto) 0 % (0-3) Basophils (%) (Auto) 1 % (0-3) Neutrophils # (Auto) 11.0 x10^3/uL (1.8-7.7) Lymphocytes # (Auto) 0.2 x10^3/uL (1.0-4.8) Monocytes # (Auto) 0.5 x10^3/uL (0.0-1.1) Eosinophils # (Auto) 0.0 x10^3/uL (0.0-0.7) Basophils # (Auto) 0.1 x10^3/uL (0.0-0.2) Segmented Neutrophils % 87 % (35-66) Band Neutrophils % 3 % (0-9) Lymphocytes % 5 % (24-48) Atypical Lymphocytes % (Manual) 1 % (0-0) Monocytes % 2 % (0-10) Eosinophils % 1 % (0-5) Myelocytes % 1 % (0-0) Platelet Estimate Adequate (ADEQUATE) Kiki Cells Present Sodium Level 141 mmol/L (136-145) Potassium Level 4.0 mmol/L (3.5-5.1) Chloride Level 103 mmol/L (98-107) Carbon Dioxide Level 30 mmol/L (21-32) Anion Gap 8 (6-14) Blood Urea Nitrogen 16 mg/dL (7-20) Creatinine 1.2 mg/dL (0.6-1.0) Estimated GFR (Cockcroft-Gault) 44.4 BUN/Creatinine Ratio 13 (6-20) Glucose Level 134 mg/dL (70-99) Lactic Acid Level 1.2 mmol/L (0.4-2.0) Calcium Level 10.3 mg/dL (8.5-10.1) Total Bilirubin 0.9 mg/dL (0.2-1.0) Aspartate Amino Transf (AST/SGOT) 21 U/L (15-37) Alanine Aminotransferase (ALT/SGPT) 32 U/L (14-59) Alkaline Phosphatase 90 U/L (46-116) Troponin I High Sensitivity 16 ng/L (4-50) Total Protein 7.0 g/dL (6.4-8.2) Albumin 3.8 g/dL (3.4-5.0) Albumin/Globulin Ratio 1.2 (1.0-1.7) VTE Prophylaxis Ordered VTE Prophylaxis Devices: No VTE Pharmacological Prophylaxi: Yes Assessment/Plan Assessment/Plan sepsis UTI weakness, fall risk, will need PT and OT cognitive decline Justifications for Admission Other Justification RYANN TAN MD Jan 25, 2022 09:32
[2022-01-25] MEDS ORDERED: IV NORMAL SALINE 1000ML BAG 1,000 ML IV ONE (09:45)
[2022-01-25] MEDS: LACTOBACILLUS RHAMNOSUS GG 1 CAPSULE. PO SCH (20:31)
[2022-01-25] MEDS ORDERED: cefTRIAXone IV Push 1 GM VIAL. IVP SCH (21:00)
[2022-01-26 03:41] VITALS: BP 147/72
[2022-01-26 07:42] LABS: BASO # 0.1 x10^3/uL (0.0-0.2); BASO % 1 % (0-3); EOS # 0.1 x10^3/uL (0.0-0.7); EOS % 2 % (0-3); HEMATOCRIT 34.4 % (36.0-47.0); HEMOGLOBIN 11.5 g/dL (12.0-15.5); LYMPH % 14 % (24-48); MEAN CORPUSCULAR HEMOGLOBIN 30 pg (25-35); MEAN CORPUSCULAR HGB CONC 33 g/dL (31-37); MEAN CORPUSCULAR VOLUME 89 fL (79-100); MONO # 0.9 x10^3/uL (0.0-1.1); MONO % 12 % (0-9); NEUT # 5.4 x10^3/uL (1.8-7.7); NEUT % 72 % (31-73); PLATELET COUNT 236 x10^3/uL (140-400); RED BLOOD COUNT 3.89 x10^6/uL (3.50-5.40); WHITE BLOOD COUNT 7.5 x10^3/uL (4.0-11.0)
[2022-01-26 08:00] VITALS: BP 142/80
[2022-01-26] MEDS: LACTOBACILLUS RHAMNOSUS GG 1 CAPSULE. PO SCH ×2 (08:01→20:57)
[2022-01-26 08:06] LABS: ALBUMIN 2.9 g/dL (3.4-5.0); CALCIUM 9.5 mg/dL (8.5-10.1); CREATININE 0.8 mg/dL (0.6-1.0); GFR 70.9; TOTAL BILIRUBIN 0.4 mg/dL (0.2-1.0); TOTAL PROTEIN 5.9 g/dL (6.4-8.2)
[2022-01-26 08:30] LABS: POTASSIUM 2.9 mmol/L (3.5-5.1)
[2022-01-26] MEDS ORDERED: POTASSIUM CHLORIDE 20 MEQ TABLET.ER. PO ONE (08:30)
[2022-01-26 11:00] VITALS: BP 154/97
--- NOTE | 2022-01-26 12:31 | PDOC ---
[employer] PROGRESS NOTE Date of Service DOS: DATE: 01/26/22 TIME: 12:30 Chief Complaint Chief Complaint sepsis UTI weakness, fall risk, will need PT and OT cognitive decline History of Present Illness History of Present Illness try pt and ot Vitals/I&O Vitals/I&O: Vital Signs Date Time Temp Pulse Resp B/P (MAP) Pulse Ox O2 Delivery O2 Flow Rate FiO2 01/26/22 11:00 98.4 74 17 154/97 (116) 96 Room Air 98.4 I & O 01/25/22 01/25/22 01/26/22 15:00 23:00 07:00 Intake Total 240 ml Balance 240 ml Physical Exam Physical Exam: not oriented, General: Alert, Cooperative, mild distress Heart: Regular rate Abdomen: Soft Extremities: No clubbing, Normal pulses Skin: No rashes Labs Labs: Laboratory Tests Test 01/26/22 06:30 White Blood Count 7.5 x10^3/uL (4.0-11.0) Red Blood Count 3.89 x10^6/uL (3.50-5.40) Hemoglobin 11.5 g/dL (12.0-15.5) Hematocrit 34.4 % (36.0-47.0) Mean Corpuscular Volume 89 fL (79-100) Mean Corpuscular Hemoglobin 30 pg (25-35) Mean Corpuscular Hemoglobin Concent 33 g/dL (31-37) Red Cell Distribution Width 13.0 % (11.5-14.5) Platelet Count 236 x10^3/uL (140-400) Neutrophils (%) (Auto) 72 % (31-73) Lymphocytes (%) (Auto) 14 % (24-48) Monocytes (%) (Auto) 12 % (0-9) Eosinophils (%) (Auto) 2 % (0-3) Basophils (%) (Auto) 1 % (0-3) Neutrophils # (Auto) 5.4 x10^3/uL (1.8-7.7) Lymphocytes # (Auto) 1.0 x10^3/uL (1.0-4.8) Monocytes # (Auto) 0.9 x10^3/uL (0.0-1.1) Eosinophils # (Auto) 0.1 x10^3/uL (0.0-0.7) Basophils # (Auto) 0.1 x10^3/uL (0.0-0.2) Sodium Level 141 mmol/L (136-145) Potassium Level 2.9 mmol/L (3.5-5.1) Chloride Level 105 mmol/L (98-107) Carbon Dioxide Level 27 mmol/L (21-32) Anion Gap 9 (6-14) Blood Urea Nitrogen 14 mg/dL (7-20) Creatinine 0.8 mg/dL (0.6-1.0) Estimated GFR (Cockcroft-Gault) 70.9 BUN/Creatinine Ratio 18 (6-20) Glucose Level 105 mg/dL (70-99) Calcium Level 9.5 mg/dL (8.5-10.1) Total Bilirubin 0.4 mg/dL (0.2-1.0) Aspartate Amino Transf (AST/SGOT) 27 U/L (15-37) Alanine Aminotransferase (ALT/SGPT) 25 U/L (14-59) Alkaline Phosphatase 70 U/L (46-116) Total Protein 5.9 g/dL (6.4-8.2) Albumin 2.9 g/dL (3.4-5.0) Albumin/Globulin Ratio 1.0 (1.0-1.7) Assessment and Plan Assessmemt and Plan Problems Medical Problems: (1) Altered mental status Status: Acute (2) Fever Status: Acute (3) Sepsis Status: Acute (4) UTI (urinary tract infection) Status: Acute Comment Review of Relevant I have reviewed the following items kimberley (where applicable) has been applied. Medications: Current Medications Medications (Trade) Dose Ordered Sig/Kim Route PRN Reason Start Time Stop Time Status Last Admin Dose Admin Ceftriaxone Sodium (Rocephin) 1 gm Q24H IVP 01/25/22 21:00 01/25/22 20:31 Lactobacillus Rhamnosus (Culturelle) 1 cap BID PO 01/25/22 21:00 01/26/22 08:01 Potassium Chloride (Klor-Con) 40 meq 1X ONCE PO 01/26/22 08:30 01/26/22 08:31 DC 01/26/22 09:23 Justifications for Admission Other Justification RYANN TAN MD Jan 26, 2022 12:31
[2022-01-26] MEDS: CEPHALEXIN 250 MG CAPSULE. PO SCH ×2 (13:04→21:29)
[2022-01-26 15:00] VITALS: BP 161/68
--- NOTE | 2022-01-26 15:17 | NUR ---
SS following for discharge planning. SS reviewed pt chart and discussed with pt RN. Pt is from home and is currently on room air. COVID19 negative. PT/OT ordered. SS will continue to follow for discharge planning.
[2022-01-26 19:00] VITALS: BP 141/76
[2022-01-26 23:38] VITALS: BP 151/88
[2022-01-27] VITALS (7 sets, daily range): BP systolic 131–177; BP diastolic 70–92
[2022-01-27] MEDS: POTASSIUM CHLORIDE 20 MEQ TABLET.ER. PO SCH (09:50)
[2022-01-27] MEDS: LACTOBACILLUS RHAMNOSUS GG 1 CAPSULE. PO SCH ×2 (09:50→21:02)
[2022-01-27] MEDS: CEPHALEXIN 250 MG CAPSULE. PO SCH ×3 (09:50→21:03)
--- NOTE | 2022-01-27 15:20 | NUR ---
SS following up with discharge planning. SS reviewed pt chart and discussed with pt RN. Pt is resident from [facility], ; fax [phone], and is currently on room air. COVID19 negative. PT/OT recommended home with home healthcare. Clinical updates phoned and faxed to the [facility]. SS will continue to follow for discharge planning.
--- NOTE | 2022-01-27 16:30 | PDOC ---
[employer] PROGRESS NOTE Date of Service DOS: DATE: 01/27/22 TIME: 16:29 Chief Complaint Chief Complaint sepsis UTI weakness, fall risk, will need PT and OT dementia History of Present Illness History of Present Illness cont the pt and ot IV abx UTI better Vitals/I&O Vitals/I&O: Vital Signs Date Time Temp Pulse Resp B/P (MAP) Pulse Ox O2 Delivery O2 Flow Rate FiO2 01/27/22 15:00 97.7 82 18 166/86 (112) 95 Room Air 97.7 I & O 01/26/22 01/26/22 01/27/22 15:00 23:00 07:00 Intake Total 300 ml Balance 300 ml Physical Exam Physical Exam: not oriented, General: Alert, Cooperative, mild distress Heart: Regular rate Abdomen: Soft Extremities: No clubbing, Normal pulses Skin: No rashes Assessment and Plan Assessmemt and Plan Problems Medical Problems: (1) Altered mental status Status: Acute (2) Fever Status: Acute (3) Sepsis Status: Acute (4) UTI (urinary tract infection) Status: Acute Comment Review of Relevant I have reviewed the following items kimberley (where applicable) has been applied. Medications: Current Medications Medications (Trade) Dose Ordered Sig/Kim Route PRN Reason Start Time Stop Time Status Last Admin Dose Admin Potassium Chloride (Klor-Con) 20 meq [id number] PO 01/27/22 08:00 01/27/22 09:50 Justifications for Admission Other Justification RYANN TAN MD Jan 27, 2022 16:30
[2022-01-27] MEDS ORDERED: ACETAMINOPHEN 325 MG TABLET. PO PRN (20:30)
[2022-01-27] MEDS: HALOPERIDOL 5 MG TABLET. PO SCH (21:00)
[2022-01-27] MEDS: MIRTAZAPINE 15 MG TABLET PO SCH (21:02)
[2022-01-27] MEDS: ATORVASTATIN CALCIUM 40 MG TABLET. PO SCH (21:03)
[2022-01-27] MEDS: MEMANTINE 10 MG TABLET. PO SCH (21:03)
[2022-01-27] MEDS: traZODone 100 MG TABLET. PO SCH (21:03)
--- NOTE | 2022-01-27 21:45 | NUR ---
On 01/27 around 2144 Iona was lying on the floor on her knees next to the door in her room. She was yelling out "HELP. Pt. had gotten out of bed and was walking by herself and fell hitting her head, forming a large 2 inch Hematoma. Rapid Response called, Dr. Dowd, signal supervisor and Yulia (spouse) all notified." Head CT ordered and Iona taken to ED and had to get 3 russ in occipital area.
--- NOTE | 2022-01-27 23:25 | ED.ADGEN ---
Past Medical History Past Medical History: Anxiety, Dementia, Depression, Hypertension Additional Past Medical Histor: HYPERLIPIDEMA,PTSD,CERVICALGIA Past Surgical History: Cholecystectomy, Hysterectomy, Other Additional Past Surgical Histo: BILATERAL SHOULDER REPLACEMENT, LOWER BACK, L knee Smoking Status: Never Smoker Alcohol Use: Sober Physician Documentation Physician Documentation Was consulted from the floor via the senior warehouse clerk and internal medicine attending for repair of occipital laceration after a fall from standing. Per report the patient has a history of dementia and fell backwards, there is no loss of consciousness. Bleeding was controlled with direct pressure. Patient was taken for a CT of the head and C-spine prior to being brought to the emergency department. On my assessment the patient has a 1.5 cm vertical laceration to the mid occiput. C-collar in place. No active Patient was prepped and draped in normal fashion, wound irrigated and cleansed with normal saline. The 1.5 cm wound was not anesthetized. Depth of wound was examined and no foreign bodies found. Wound was approximated with 3 russ placed without complication. Wound was not dressed a nonadherent bandage. Patient tolerated the procedure well no no complications. Returned to the floor KAM KELLY MD Jan 27, 2022 23:25
--- NOTE | 2022-01-27 23:59 | RAD ---
CT HEAD AND C-SPINE WO History: Reason: S/P fall / Spl. Instructions: / History: Comparison: January 24, 2022 Technique: Noncontrast CT imaging was performed of the head and cervical spine. Coronal and sagittal reconstructions were performed. Exposure: One or more of the following individualized dose reduction techniques were utilized for thi s examination: 1. Automated exposure control 2. Adjustment of the mA and/or kV according to patient size 3. Use of iterative reconstruction technique. Findings: Head CT: No intracranial hemorrhage. No mass effect. Mildly dilated lateral and third ventricles, unc hanged. Mild brain parenchymal volume loss. Mild foci of decreased attenuation within the hemispheric white m atter, most often due to chronic microvascular ischemia, unchanged. Posterior scalp soft tissue swelling and hematoma. Imaged orbits are unremarkable. Imaged paranasal sinuses and mastoid air cells are clear. No acute ca lvarial fracture. Cervical spine CT: Multilevel grade 1 anterolisthesis. Normal vertebral body height. No acute fracture. Moderate degenerative disc changes most prominent C4-C5 and C6-C7. Advanced facet arthropathy. No hig h-grade canal narrowing. Multilevel neuroforaminal narrowing. Soft tissues unremarkable.Pulmonary emphysema. Impression: Head CT: 1. No acute intracranial abnormality. 2. Posterior scalp soft tissue swelling and hematoma. 3. Unchanged mildly dilated lateral third ventricles, may relate to central brain parenchymal volume loss although can be seen with normal pressure hydrocephalus in the appropriate clinical setting. Cervical spine CT: 1. No acute fracture or subluxation of the cervical spine. 2. Moderate cervical spondylosis. Electronically signed by: Rafael Leon DO (01/27/2022 11:57 PM) [facility]
[2022-01-28 03:24] VITALS: BP 143/86
[2022-01-28 07:00] VITALS: BP 139/71
[2022-01-28] MEDS: LOSARTAN POTASSIUM 25 MG TABLET. PO SCH (08:35)
[2022-01-28] MEDS: LACTOBACILLUS RHAMNOSUS GG 1 CAPSULE. PO SCH ×2 (08:35→21:06)
[2022-01-28] MEDS: DONEPEZIL HCL 10 MG TABLET. PO SCH (08:35)
[2022-01-28] MEDS: DULoxetine HCL 30 MG CAPSULE.DR PO SCH (08:35)
[2022-01-28] MEDS: CEPHALEXIN 250 MG CAPSULE. PO SCH ×3 (08:36→21:06)
[2022-01-28] MEDS: MEMANTINE 10 MG TABLET. PO SCH ×2 (08:36→21:05)
[2022-01-28] MEDS: POTASSIUM CHLORIDE 20 MEQ TABLET.ER. PO SCH (08:36)
[2022-01-28] MEDS: CARVEDILOL 6.25 MG TABLET. PO SCH ×2 (08:37→17:46)
[2022-01-28] MEDS: HALOPERIDOL 5 MG TABLET. PO SCH ×2 (08:48→21:00)
[2022-01-28] MEDS: CHOLECALCIFEROL (VITAMIN D3) 1,000 UNIT TABLET PO SCH (08:49)
[2022-01-28 08:57] LABS: CALCIUM 9.2 mg/dL (8.5-10.1); GFR 54.8; MAGNESIUM 1.7 mg/dL (1.8-2.4); POTASSIUM 3.2 mmol/L (3.5-5.1)
[2022-01-28 11:00] VITALS: BP 151/77
[2022-01-28 15:00] VITALS: BP 133/72
[2022-01-28] MEDS ORDERED: IV NORMAL SALINE 1000ML BAG 1,000 ML IV ONE (15:00)
--- NOTE | 2022-01-28 17:00 | PDOC ---
[employer] PROGRESS NOTE Date of Service DOS: DATE: 01/28/22 TIME: 17:00 Chief Complaint Chief Complaint sepsis UTI weakness, fall risk, will need PT and OT dementia History of Present Illness History of Present Illness she fell last night, req. russ to her scalp OK today, coherent 2/4, up to commode, her was here earlier and was tearful cont current PT and OT cont the pt and ot IV abx UTI better Vitals/I&O Vitals/I&O: Vital Signs Date Time Temp Pulse Resp B/P (MAP) Pulse Ox O2 Delivery O2 Flow Rate FiO2 01/28/22 15:00 98.6 96 18 133/72 (92) 95 Room Air 98.6 I & O0 01/27/22 01/27/22 01/28/22 15:00 23:00 07:00 Intake Total 360 ml 180 ml Balance 360 ml 180 ml Physical Exam Physical Exam: not oriented, General: Alert, Cooperative, mild distress Heart: Regular rate Abdomen: Soft Extremities: No clubbing, Normal pulses Skin: No rashes Labs Labs: Laboratory Tests Test 01/28/22 07:41 Sodium Level 146 mmol/L (136-145) Potassium Level 3.2 mmol/L (3.5-5.1) Chloride Level 109 mmol/L (98-107) Carbon Dioxide Level 28 mmol/L (21-32) Anion Gap 9 (6-14) Blood Urea Nitrogen 13 mg/dL (7-20) Creatinine 1.0 mg/dL (0.6-1.0) Estimated GFR (Cockcroft-Gault) 54.8 Glucose Level 104 mg/dL (70-99) Calcium Level 9.2 mg/dL (8.5-10.1) Magnesium Level 1.7 mg/dL (1.8-2.4) Assessment and Plan Assessmemt and Plan Problems Medical Problems: (1) Altered mental status Status: Acute (2) Fever Status: Acute (3) Sepsis Status: Acute (4) UTI (urinary tract infection) Status: Acute Comment Review of Relevant I have reviewed the following items kimberley (where applicable) has been applied. Medications: Current Medications Medications (Trade) Dose Ordered Sig/Kim Route PRN Reason Start Time Stop Time Status Last Admin Dose Admin Carvedilol (Coreg) 6.25 mg BIDWMEALS PO 01/28/22 08:00 01/28/22 08:37 Vitamin D (Vitamin D3) 1,000 unit DAILY PO 01/28/22 09:00 01/28/22 08:49 Donepezil HCl (Aricept) 10 mg DAILY PO 01/28/22 09:00 01/28/22 08:35 Losartan Potassium (Cozaar) 25 mg DAILY PO 01/28/22 09:00 01/28/22 08:35 Memantine (Namenda) 10 mg BID PO 01/27/22 21:00 01/28/22 08:36 Trazodone HCl (Desyrel) 100 mg QHS PO 01/27/22 21:00 01/27/22 21:03 Atorvastatin Calcium (Lipitor) 80 mg QHS PO 01/27/22 21:00 01/27/22 21:03 Duloxetine HCl (Cymbalta) 60 mg DAILY PO 01/28/22 09:00 01/28/22 08:35 Mirtazapine (Remeron) 45 mg QHS PO 01/27/22 21:00 01/27/22 21:02 Sodium Chloride 1,000 ml @ 1,000 mls/hr 1X ONCE IV 01/28/22 15:00 01/28/22 15:59 DC 01/28/22 15:00 Justifications for Admission Other Justification RYANN TAN MD Jan 28, 2022 17:00
[2022-01-28 19:00] VITALS: BP 163/90
[2022-01-28] MEDS: traZODone 100 MG TABLET. PO SCH (21:05)
[2022-01-28] MEDS: ATORVASTATIN CALCIUM 40 MG TABLET. PO SCH (21:06)
[2022-01-28] MEDS: MIRTAZAPINE 15 MG TABLET PO SCH (21:06)
[2022-01-28] MEDS: POTASSIUM CL 20MEQ D5-0.45NACL 1,000 ML IV SCH (21:07)
[2022-01-28 23:00] VITALS: BP 189/89
[2022-01-29] MEDS: POTASSIUM CL 20MEQ D5-0.45NACL 1,000 ML IV SCH ×2 (00:32→16:00)
[2022-01-29 03:00] VITALS: BP 173/86
[2022-01-29 07:00] VITALS: BP 177/82
[2022-01-29 08:28] LABS: CALCIUM 8.9 mg/dL (8.5-10.1); CREATININE 0.8 mg/dL (0.6-1.0); GFR 70.9; MAGNESIUM 1.6 mg/dL (1.8-2.4); POTASSIUM 3.3 mmol/L (3.5-5.1)
[2022-01-29] MEDS: DULoxetine HCL 30 MG CAPSULE.DR PO SCH (08:34)
[2022-01-29] MEDS: LOSARTAN POTASSIUM 25 MG TABLET. PO SCH (08:34)
[2022-01-29] MEDS: DONEPEZIL HCL 10 MG TABLET. PO SCH (08:35)
[2022-01-29] MEDS: CEPHALEXIN 250 MG CAPSULE. PO SCH ×3 (08:35→20:42)
[2022-01-29] MEDS: MEMANTINE 10 MG TABLET. PO SCH ×2 (08:36→20:42)
[2022-01-29] MEDS: HALOPERIDOL 5 MG TABLET. PO SCH ×2 (08:36→20:42)
[2022-01-29] MEDS: POTASSIUM CHLORIDE 20 MEQ TABLET.ER. PO SCH (08:36)
[2022-01-29] MEDS: CHOLECALCIFEROL (VITAMIN D3) 1,000 UNIT TABLET PO SCH (08:36)
[2022-01-29] MEDS: CARVEDILOL 6.25 MG TABLET. PO SCH ×2 (08:37→17:34)
[2022-01-29] MEDS: LACTOBACILLUS RHAMNOSUS GG 1 CAPSULE. PO SCH ×2 (08:47→20:42)
[2022-01-29 10:49] VITALS: BP 138/87
[2022-01-29] MEDS ORDERED: MAGNESIUM SULFATE 4GM 100 ML IV ONE (13:00)
--- NOTE | 2022-01-29 13:45 | PDOC ---
[employer] PROGRESS NOTE Date of Service DOS: DATE: 01/29/22 TIME: 13:44 Chief Complaint Chief Complaint sepsis UTI weakness, fall risk, will need PT and OT dementia History of Present Illness History of Present Illness 01/29 - about the same, no event last 23 hours, plan skilled dementia is limiting 01/28 she fell last night, req. russ to her scalp OK today, coherent 2/, up to commode, her was here earlier and was tearful cont current PT and OT cont the pt and ot IV abx UTI better Vitals/I&O Vitals/I&O: Vital Signs Date Time Temp Pulse Resp B/P (MAP) Pulse Ox O2 Delivery O2 Flow Rate FiO2 01/29/22 10:49 97.8 78 18 138/87 (104) 97 Room Air 97.8 I & O 01/28/22 01/28/22 01/29/22 15:00 23:00 07:00 Intake Total 540 ml Balance 540 ml Physical Exam Physical Exam: not oriented, General: Alert, Cooperative, mild distress Heart: Regular rate Abdomen: Soft Extremities: No clubbing, Normal pulses Skin: No rashes Labs Labs: Laboratory Tests Test 01/29/22 07:20 Sodium Level 146 mmol/L (136-145) Potassium Level 3.3 mmol/L (3.5-5.1) Chloride Level 109 mmol/L (98-107) Carbon Dioxide Level 28 mmol/L (21-32) Anion Gap 9 (6-14) Blood Urea Nitrogen 10 mg/dL (7-20) Creatinine 0.8 mg/dL (0.6-1.0) Estimated GFR (Cockcroft-Gault) 70.9 Glucose Level 110 mg/dL (70-99) Calcium Level 8.9 mg/dL (8.5-10.1) Magnesium Level 1.6 mg/dL (1.8-2.4) Assessment and Plan Assessmemt and Plan Problems Medical Problems: (1) Altered mental status Status: Acute (2) Fever Status: Acute (3) Sepsis Status: Acute (4) UTI (urinary tract infection) Status: Acute Comment Review of Relevant I have reviewed the following items kimberley (where applicable) has been applied. Medications: Current Medications Medications (Trade) Dose Ordered Sig/Kim Route PRN Reason Start Time Stop Time Status Last Admin Dose Admin Sodium Chloride 1,000 ml @ 1,000 mls/hr 1X ONCE IV 01/28/22 15:00 01/28/22 15:59 DC 01/28/22 15:00 Potassium Chloride/Dextrose/ Sod Cl 1,000 ml @ 80 mls/hr [id number] IV 01/28/22 15:00 01/29/22 00:32 Magnesium Sulfate 100 ml @ 25 mls/hr 1X ONCE IV 01/29/22 13:00 01/29/22 16:59 01/29/22 12:56 Justifications for Admission Other Justification RYANN TAN MD Jan 29, 2022 13:45
[2022-01-29 15:00] VITALS: BP 150/86
[2022-01-29 19:00] VITALS: BP 147/96
[2022-01-29] MEDS: ATORVASTATIN CALCIUM 40 MG TABLET. PO SCH (20:42)
[2022-01-29] MEDS: traZODone 100 MG TABLET. PO SCH (20:42)
[2022-01-29] MEDS: MIRTAZAPINE 15 MG TABLET PO SCH (20:42)
[2022-01-29 23:56] VITALS: BP 174/92
[2022-01-30 03:00] VITALS: BP_SYST 178; BP_SYST 196; BP_DIAS 101; BP_DIAS 99
[2022-01-30] MEDS: POTASSIUM CL 20MEQ D5-0.45NACL 1,000 ML IV SCH ×2 (03:36→15:53)
[2022-01-30 07:00] VITALS: BP 112/67
[2022-01-30] MEDS: LACTOBACILLUS RHAMNOSUS GG 1 CAPSULE. PO SCH ×2 (08:03→20:16)
[2022-01-30] MEDS: HALOPERIDOL 5 MG TABLET. PO SCH ×2 (08:03→20:15)
[2022-01-30] MEDS: MEMANTINE 10 MG TABLET. PO SCH ×2 (08:03→20:16)
[2022-01-30] MEDS: DULoxetine HCL 30 MG CAPSULE.DR PO SCH (08:03)
[2022-01-30] MEDS: DONEPEZIL HCL 10 MG TABLET. PO SCH (08:03)
[2022-01-30] MEDS: CHOLECALCIFEROL (VITAMIN D3) 1,000 UNIT TABLET PO SCH (08:03)
[2022-01-30] MEDS: POTASSIUM CHLORIDE 20 MEQ TABLET.ER. PO SCH (08:04)
[2022-01-30] MEDS: CARVEDILOL 6.25 MG TABLET. PO SCH ×2 (08:04→16:31)
[2022-01-30] MEDS: LOSARTAN POTASSIUM 25 MG TABLET. PO SCH (08:04)
[2022-01-30] MEDS: CEPHALEXIN 250 MG CAPSULE. PO SCH ×3 (08:25→20:15)
[2022-01-30 11:00] VITALS: BP 131/68
--- NOTE | 2022-01-30 11:16 | PDOC ---
[employer] PROGRESS NOTE Date of Service DOS: DATE: 01/30/22 TIME: 11:14 Chief Complaint Chief Complaint sepsis UTI weakness, fall risk, will need PT and OT dementia History of Present Illness History of Present Illness 01/30/2022 Patient seen and examined Discussed with RN Chart reviewed Discussed with senior case managerthoroughbred horse farm manager discharge planning in progress 01/29 - about the same, no event last 23 hours, plan skilled dementia is limiting 01/28 she fell last night, req. russ to her scalp OK today, coherent 2/, up to commode, her was here earlier and was tearful cont current PT and OT cont the pt and ot IV abx UTI better Vitals/I&O Vitals/I&O: Vital Signs Date Time Temp Pulse Resp B/P (MAP) Pulse Ox O2 Delivery O2 Flow Rate FiO2 01/30/22 08:04 85 112/67 01/30/22 08:00 Room Air 01/30/22 07:00 97.8 20 94 97.8 I & O 01/29/22 01/29/22 01/30/22 15:00 23:00 07:00 Intake Total 100 ml 300 ml 120 ml Balance 100 ml 300 ml 120 ml Physical Exam Physical Exam: not oriented, General: Alert, Cooperative, mild distress Heart: Regular rate Abdomen: Soft Extremities: No clubbing, Normal pulses Skin: No rashes Assessment and Plan Assessmemt and Plan Problems Medical Problems: (1) Altered mental status Status: Acute (2) Fever Status: Acute (3) Sepsis Status: Acute (4) UTI (urinary tract infection) Status: Acute sepsis UTI weakness, fall risk, will need PT and OT dementia Plan Continue antibiotics Supportive residential meds DVT prophylaxis DNR Discharge disposition pending suspect she will go to skilled Comment Review of Relevant I have reviewed the following items kimberley (where applicable) has been applied. Medications: Current Medications Medications (Trade) Dose Ordered Sig/Kim Route PRN Reason Start Time Stop Time Status Last Admin Dose Admin Magnesium Sulfate 100 ml @ 25 mls/hr 1X ONCE IV 01/29/22 13:00 01/29/22 16:59 DC 01/29/22 12:56 Justifications for Admission Other Justification BONITA FORMAN III DO Jan 30, 2022 11:16
--- NOTE | 2022-01-30 12:53 | NUR ---
SW following. Discussed with RN, pt from [facility], room air, regular diet. Therapy recommending home health. Awaiting discharge orders and [facility] will arrange home health. DRE will continue to follow.
[2022-01-30 15:00] VITALS: BP 138/70
[2022-01-30 19:00] VITALS: BP 132/64
[2022-01-30] MEDS: ATORVASTATIN CALCIUM 40 MG TABLET. PO SCH (20:15)
[2022-01-30] MEDS: MIRTAZAPINE 15 MG TABLET PO SCH (20:16)
[2022-01-30 23:00] VITALS: BP 132/61
[2022-01-31 03:24] VITALS: BP 142/70
[2022-01-31] MEDS: POTASSIUM CL 20MEQ D5-0.45NACL 1,000 ML IV SCH (05:36)
[2022-01-31 07:00] VITALS: BP 149/70
[2022-01-31] MEDS: CHOLECALCIFEROL (VITAMIN D3) 1,000 UNIT TABLET PO SCH (08:06)
[2022-01-31] MEDS: MEMANTINE 10 MG TABLET. PO SCH ×2 (08:07→20:19)
[2022-01-31] MEDS: POTASSIUM CHLORIDE 20 MEQ TABLET.ER. PO SCH (08:07)
[2022-01-31] MEDS: DULoxetine HCL 30 MG CAPSULE.DR PO SCH (08:07)
[2022-01-31] MEDS: LACTOBACILLUS RHAMNOSUS GG 1 CAPSULE. PO SCH ×2 (08:07→20:19)
[2022-01-31] MEDS: CEPHALEXIN 250 MG CAPSULE. PO SCH ×3 (08:07→20:20)
[2022-01-31] MEDS: DONEPEZIL HCL 10 MG TABLET. PO SCH (08:07)
[2022-01-31] MEDS: HALOPERIDOL 5 MG TABLET. PO SCH ×2 (08:08→20:20)
[2022-01-31] MEDS: LOSARTAN POTASSIUM 25 MG TABLET. PO SCH (08:08)
[2022-01-31] MEDS: CARVEDILOL 6.25 MG TABLET. PO SCH ×2 (08:08→17:47)
[2022-01-31 11:00] VITALS: BP 125/65
--- NOTE | 2022-01-31 11:57 | PDOC ---
[employer] [facility] PROGRESS NOTE Date of Service DOS: DATE: 01/31/22 TIME: 11:57 Chief Complaint Chief Complaint sepsis UTI weakness, fall risk, will need PT and OT dementia History of Present Illness History of Present Illness 02/01/2020 Patient seen and examined, discussed with RN Chart reviewed She is going to [facility] in a day or 2 01/30/2022 Patient seen and examined Discussed with RN Chart reviewed Discussed with case workercapacity planning manager discharge planning in progress 01/29 - about the same, no event last 23 hours, plan skilled dementia is limiting 01/28 she fell last night, req. russ to her scalp OK today, coherent 12/23, up to commode, her was here earlier and was tearful cont current PT and OT cont the pt and ot IV abx UTI better Vitals/I&O Vitals/I&O: Vital Signs Date Time Temp Pulse Resp B/P (MAP) Pulse Ox O2 Delivery O2 Flow Rate FiO2 01/31/22 11:00 97.8 72 18 125/65 (85) 97 Room Air 97.8 I & O 01/30/22 01/30/22 01/31/22 15:00 23:00 07:00 Intake Total 100 ml Balance 100 ml Physical Exam Physical Exam: not oriented, General: Alert, Cooperative, mild distress Heart: Regular rate Abdomen: Soft Extremities: No clubbing, Normal pulses Skin: No rashes Assessment and Plan Assessmemt and Plan Problems Medical Problems: (1) Altered mental status Status: Acute (2) Fever Status: Acute (3) Sepsis Status: Acute (4) UTI (urinary tract infection) Status: Acute sepsis UTI weakness, fall risk, will need PT and OT dementia Plan We are trying to arrange fdc for now continue the following; Continue antibiotics Supportive [facility] meds DVT prophylaxis DNR Discharge disposition pending suspect she will go to skilled Comment Review of Relevant I have reviewed the following items kimberley (where applicable) has been applied. Justifications for Admission Other Justification BONITA FORMAN III DO Jan 31, 2022 11:57
--- NOTE | 2022-01-31 14:45 | NUR ---
SS following up with discharge planning. SS reviewed pt chart and discussed with pt RN. Pt is currently on room air. Pt is from [facility]. PT/OT recommended senior care unit. COVID19 test pending for placement. SS met with pt and pt's spouse in room and discussed discharge planning and senior care unit. Pt's spouse requested referral to [facility], ; fax [phone]. Referral sent to [facility]. SS discussed with Chrissy at [facility]. Packet placed on chart. SS will continue to follow for discharge planning.
[2022-01-31 15:00] VITALS: BP 125/62
--- NOTE | 2022-01-31 15:37 | NUR ---
Assumed patient care at 1500, agree with most recent nursing assessment. Will continue to monitor.
[2022-01-31 19:00] VITALS: BP 146/76
[2022-01-31] MEDS: ATORVASTATIN CALCIUM 40 MG TABLET. PO SCH (20:19)
[2022-01-31] MEDS: MIRTAZAPINE 15 MG TABLET PO SCH (20:19)
[2022-01-31 23:00] VITALS: BP 120/59
[2022-02-01] VITALS (7 sets, daily range): BP systolic 112–144; BP diastolic 63–85
[2022-02-01] MEDS: DULoxetine HCL 30 MG CAPSULE.DR PO SCH (08:15)
[2022-02-01] MEDS: HALOPERIDOL 5 MG TABLET. PO SCH ×2 (08:15→20:15)
[2022-02-01] MEDS: CEPHALEXIN 250 MG CAPSULE. PO SCH ×3 (08:16→20:14)
[2022-02-01] MEDS: POTASSIUM CHLORIDE 20 MEQ TABLET.ER. PO SCH (08:16)
[2022-02-01] MEDS: MEMANTINE 10 MG TABLET. PO SCH ×2 (08:17→20:15)
[2022-02-01] MEDS: LACTOBACILLUS RHAMNOSUS GG 1 CAPSULE. PO SCH ×2 (08:17→20:14)
[2022-02-01] MEDS: DONEPEZIL HCL 10 MG TABLET. PO SCH (08:17)
[2022-02-01] MEDS: CHOLECALCIFEROL (VITAMIN D3) 1,000 UNIT TABLET PO SCH (08:17)
[2022-02-01] MEDS: CARVEDILOL 6.25 MG TABLET. PO SCH ×2 (08:18→17:49)
[2022-02-01] MEDS: LOSARTAN POTASSIUM 25 MG TABLET. PO SCH (08:19)
--- NOTE | 2022-02-01 10:18 | NUR ---
SS following up with discharge planning. SS reviewed pt chart and discussed with pt RN. Pt is resident from [facility], ; fax [phone], and is currently on room air. COVID19 negative. PT/OT recommended residential unit. Pt's family requested referrals to [facility], ; fax [phone], and [facility], ; fax [phone]. Referrals were sent. [facility] clinically declined pt. [facility] still reviewing at this time and discussing with floor RN. Currently awaiting acceptance at this time. SS will continue to follow for discharge planning.
--- NOTE | 2022-02-01 11:02 | PDOC ---
[employer] PROGRESS NOTE Date of Service DOS: DATE: 02/01/22 TIME: 11:00 Chief Complaint Chief Complaint sepsis UTI weakness, fall risk, will need PT and OT dementia History of Present Illness History of Present Illness 02/01/2022: Patient seen and examined at bedside. She has no complaints today. Afebrile. [place] referrals pending; discussed with social services designee and RN. 01/31/2022 Patient seen and examined, discussed with RN Chart reviewed She is going to [facility] in a day or 2 01/30/2022 Patient seen and examined Discussed with RN Chart reviewed Discussed with foster care case managermanager revenue discharge planning in progress 01/29 - about the same, no event last 23 hours, plan skilled dementia is limiting 01/28 she fell last night, req. russ to her scalp OK today, coherent 12/23, up to commode, her was here earlier and was tearful cont current PT and OT cont the pt and ot IV abx UTI better Vitals/I&O Vitals/I&O: Vital Signs Date Time Temp Pulse Resp B/P (MAP) Pulse Ox O2 Delivery O2 Flow Rate FiO2 02/01/22 08:19 82 129/72 02/01/22 08:00 Room Air 02/01/22 07:00 98.1 20 94 98.1 I & O 01/31/22 01/31/22 02/01/22 15:00 23:00 07:00 Intake Total 200 ml 1100 ml 350 ml Balance 200 ml 1100 ml 350 ml Physical Exam Physical Exam: not oriented, General: Alert, Cooperative, No acute distress Heart: Regular rate Lungs: Clear Abdomen: Soft Extremities: No clubbing, Normal pulses Skin: No rashes Labs Labs: Laboratory Tests Test 01/31/22 12:50 Coronavirus (COVID-19)(PCR) Not detected (NOT DETECTD) Assessment and Plan Assessmemt and Plan Problems Medical Problems: (1) Altered mental status Status: Acute (2) Fever Status: Acute (3) Sepsis Status: Acute (4) UTI (urinary tract infection) Status: Acute Comment Review of Relevant I have reviewed the following items kimberley (where applicable) has been applied. Justifications for Admission Other Justification DIONNE MATUTE MD Feb 01, 2022 11:01
[2022-02-01] MEDS: ATORVASTATIN CALCIUM 40 MG TABLET. PO SCH (20:14)
[2022-02-01] MEDS: MIRTAZAPINE 15 MG TABLET PO SCH (20:14)
[2022-02-02 03:00] VITALS: BP 144/70
[2022-02-02 05:33] LABS: CALCIUM 10.3 mg/dL (8.5-10.1); CREATININE 1.1 mg/dL (0.6-1.0); GFR 49.1; POTASSIUM 4.3 mmol/L (3.5-5.1)
[2022-02-02 07:00] VITALS: BP 134/71
[2022-02-02] MEDS: LOSARTAN POTASSIUM 25 MG TABLET. PO SCH (09:27)
[2022-02-02] MEDS: DONEPEZIL HCL 10 MG TABLET. PO SCH (09:27)
[2022-02-02] MEDS: DULoxetine HCL 30 MG CAPSULE.DR PO SCH (09:27)
[2022-02-02] MEDS: MEMANTINE 10 MG TABLET. PO SCH ×2 (09:27→20:10)
[2022-02-02] MEDS: HALOPERIDOL 5 MG TABLET. PO SCH ×2 (09:28→20:10)
[2022-02-02] MEDS: CARVEDILOL 6.25 MG TABLET. PO SCH ×2 (09:28→17:00)
[2022-02-02] MEDS: POTASSIUM CHLORIDE 20 MEQ TABLET.ER. PO SCH (09:28)
[2022-02-02] MEDS: LACTOBACILLUS RHAMNOSUS GG 1 CAPSULE. PO SCH ×2 (09:28→20:10)
[2022-02-02] MEDS: CHOLECALCIFEROL (VITAMIN D3) 1,000 UNIT TABLET PO SCH (09:28)
[2022-02-02 11:00] VITALS: BP 111/64
--- NOTE | 2022-02-02 11:30 | PDOC ---
[employer] PROGRESS NOTE Date of Service DOS: DATE: 02/02/22 TIME: 11:18 Chief Complaint Chief Complaint sepsis UTI weakness, fall risk, will need PT and OT dementia History of Present Illness History of Present Illness 02/02/2022 No acute events overnight. Patient seen examined bedside. No concerns from nursing. AF and VSS. Pending SNF placement. Patient's chart, labs, images were reviewed and discussed with RN 02/01/2022: Patient seen and examined at bedside. She has no complaints today. Afebrile. [place] referrals pending; discussed with social worker clinical and RN. 01/31/2022 Patient seen and examined, discussed with RN Chart reviewed She is going to [facility] a day [facility] 2 01/30/2022 Patient seen and examined Discussed with RN Chart reviewed Discussed with director caseconference manager discharge planning in progress 01/29 - about the same, no event last 23 hours, plan skilled dementia is limiting 01/28 she fell last night, req. russ to her scalp OK today, coherent 12/23, up to commode, her was here earlier and was tearful cont current PT and OT cont the pt and ot IV abx UTI better Vitals/I&O Vitals/I&O: Vital Signs Date Time Temp Pulse Resp B/P (MAP) Pulse Ox O2 Delivery O2 Flow Rate FiO2 02/02/22 09:28 79 134/71 02/02/22 07:00 97.7 18 97 Room Air 97.7 I & O 02/01/22 02/01/22 02/02/22 15:00 23:00 07:00 Intake Total 480 ml 240 ml Output Total 0 ml Balance 480 ml 240 ml Physical Exam Physical Exam: not oriented, General: Alert, Cooperative, No acute distress Heart: Regular rate Lungs: Clear Abdomen: Soft Extremities: No clubbing, Normal pulses Skin: No rashes Labs Labs: Laboratory Tests Test 02/02/22 03:40 Sodium Level 141 mmol/L (136-145) Potassium Level 4.3 mmol/L (3.5-5.1) Chloride Level 105 mmol/L (98-107) Carbon Dioxide Level 32 mmol/L (21-32) Anion Gap 4 (6-14) Blood Urea Nitrogen 14 mg/dL (7-20) Creatinine 1.1 mg/dL (0.6-1.0) Estimated GFR (Cockcroft-Gault) 49.1 Glucose Level 92 mg/dL (70-99) Calcium Level 10.3 mg/dL (8.5-10.1) Magnesium Level 1.9 mg/dL (1.8-2.4) Assessment and Plan Assessmemt and Plan Problems Medical Problems: (1) Altered mental status Status: Acute (2) Fever Status: Acute (3) Sepsis Status: Acute (4) UTI (urinary tract infection) Status: Acute Comment Review of Relevant I have reviewed the following items kimberley (where applicable) has been applied. Justifications for Admission Other Justification TRAV CHEATHAM MD Feb 02, 2022 11:30
--- NOTE | 2022-02-02 14:18 | NUR ---
SW following. Discussed with RN, [facility] was able to speak to [facility] RN today. Awaiting acceptance decision. SW will continue to follow.
[2022-02-02 15:00] VITALS: BP 107/63
[2022-02-02 19:00] VITALS: BP 127/71
[2022-02-02] MEDS: ATORVASTATIN CALCIUM 40 MG TABLET. PO SCH (20:10)
[2022-02-02] MEDS: MIRTAZAPINE 15 MG TABLET PO SCH (20:10)
[2022-02-02 23:00] VITALS: BP 140/68
[2022-02-03 03:07] VITALS: BP 145/70
[2022-02-03 07:00] VITALS: BP 153/83
[2022-02-03] MEDS: DULoxetine HCL 30 MG CAPSULE.DR PO SCH (09:33)
[2022-02-03] MEDS: MEMANTINE 10 MG TABLET. PO SCH ×2 (09:34→20:28)
[2022-02-03] MEDS: HALOPERIDOL 5 MG TABLET. PO SCH ×2 (09:34→20:29)
[2022-02-03] MEDS: LACTOBACILLUS RHAMNOSUS GG 1 CAPSULE. PO SCH ×2 (09:34→20:28)
[2022-02-03] MEDS: CARVEDILOL 6.25 MG TABLET. PO SCH ×2 (09:34→18:25)
[2022-02-03] MEDS: CHOLECALCIFEROL (VITAMIN D3) 1,000 UNIT TABLET PO SCH (09:34)
[2022-02-03] MEDS: POTASSIUM CHLORIDE 20 MEQ TABLET.ER. PO SCH (09:34)
[2022-02-03] MEDS: DONEPEZIL HCL 10 MG TABLET. PO SCH (09:34)
[2022-02-03] MEDS: LOSARTAN POTASSIUM 25 MG TABLET. PO SCH (09:34)
--- NOTE | 2022-02-03 10:17 | PDOC ---
[employer] [facility] PROGRESS NOTE Date of Service DOS: DATE: 02/03/22 TIME: 10:16 Chief Complaint Chief Complaint sepsis UTI weakness, fall risk, will need PT and OT dementia History of Present Illness History of Present Illness 02/03/2022 No acute events overnight. Patient seen examined bedside. Patient waiting for placement. Possible return to [facility]. Patient's chart, labs, images were reviewed and discussed with RN 02/02/2022 No acute events overnight. Patient seen examined bedside. No concerns from nursing. AF and VSS. Pending SNF placement. Patient's chart, labs, images were reviewed and discussed with RN 02/01/2022: Patient seen and examined at bedside. She has no complaints today. Afebrile. [place] referrals pending; discussed with health and social care teacher and RN. 01/31/2022 Patient seen and examined, discussed with RN Chart reviewed [facility] a day or 2 01/30/2022 Patient seen and examined Discussed with RN Chart reviewed Discussed with case manager specialistmanager financial systems discharge planning in progress 01/29 - about the same, no event last 23 hours, plan skilled dementia is limiting 01/28 she fell last night, req. russ to her scalp OK today, coherent 12/23, up to commode, her was here earlier and was tearful cont current PT and OT cont the pt and ot IV abx UTI better Vitals/I&O Vitals/I&O: Vital Signs Date Time Temp Pulse Resp B/P (MAP) Pulse Ox O2 Delivery O2 Flow Rate FiO2 02/03/22 09:34 71 153/83 02/03/22 07:00 97.8 97.8 02/03/22 03:07 18 95 Room Air I & O 02/02/22 02/02/22 02/03/22 15:00 23:00 07:00 Intake Total 240 ml 250 ml Balance 240 ml 250 ml Physical Exam Physical Exam: not oriented, General: Alert, Cooperative, No acute distress Heart: Regular rate Lungs: Clear Abdomen: Soft Extremities: No clubbing, Normal pulses Skin: No rashes Assessment and Plan Assessmemt and Plan Problems Medical Problems: (1) Altered mental status Status: Acute (2) Fever Status: Acute (3) Sepsis Status: Acute (4) UTI (urinary tract infection) Status: Acute Comment Review of Relevant I have reviewed the following items kimberley (where applicable) has been applied. Justifications for Admission Other Justification TRAV CHEATHAM MD Feb 03, 2022 10:17
[2022-02-03 11:00] VITALS: BP 116/73
--- NOTE | 2022-02-03 11:59 | NUR ---
DRE following. Discussed with RN, [facility] declined to take pt due to pt's confusion. DRE left voicemail for pt's this morning, and attempted to call again now. Awaiting return call from family. DRE will continue to follow. Addendum: 02/03/22 at 1328 by CHARLES ERICKSON DRE spoke with pt's , Yulia (ph: [phone]), she would like DRE to try [facility] (if not already tried) and [facility]. DRE spoke with Thor at [facility] - he had not screened pt for OP but can accept. Referral refaxed to [facility], awaiting insurance auth. DRE notified Yulia, she is agreeable. RN notified. DRE will continue to follow.
[2022-02-03 15:00] VITALS: BP 117/79
[2022-02-03] MEDS ORDERED: HYDROcodone/APAP 5/325MG 1 TAB TABLET PO PRN (18:15)
[2022-02-03 19:00] VITALS: BP 93/48
[2022-02-03] MEDS: ATORVASTATIN CALCIUM 40 MG TABLET. PO SCH (20:28)
[2022-02-03] MEDS: MIRTAZAPINE 15 MG TABLET PO SCH (20:28)
[2022-02-03 23:00] VITALS: BP 125/63
[2022-02-04 03:11] VITALS: BP 134/70
[2022-02-04 07:00] VITALS: BP 136/73
[2022-02-04] MEDS: LACTOBACILLUS RHAMNOSUS GG 1 CAPSULE. PO SCH ×2 (08:36→20:21)
[2022-02-04] MEDS: MEMANTINE 10 MG TABLET. PO SCH ×2 (08:36→20:21)
[2022-02-04] MEDS: DULoxetine HCL 30 MG CAPSULE.DR PO SCH (08:36)
[2022-02-04] MEDS: HALOPERIDOL 5 MG TABLET. PO SCH ×2 (08:36→20:21)
[2022-02-04] MEDS: DONEPEZIL HCL 10 MG TABLET. PO SCH (08:36)
[2022-02-04] MEDS: CARVEDILOL 6.25 MG TABLET. PO SCH ×2 (08:36→18:12)
[2022-02-04] MEDS: CHOLECALCIFEROL (VITAMIN D3) 1,000 UNIT TABLET PO SCH (08:36)
[2022-02-04] MEDS: POTASSIUM CHLORIDE 20 MEQ TABLET.ER. PO SCH (08:37)
[2022-02-04] MEDS: LOSARTAN POTASSIUM 25 MG TABLET. PO SCH (08:42)
[2022-02-04 11:14] VITALS: BP 128/68
--- NOTE | 2022-02-04 11:41 | PDOC ---
[facility] [facility] PROGRESS NOTE Date of Service DOS: DATE: 02/04/22 TIME: 11:39 Chief Complaint Chief Complaint sepsis UTI weakness, fall risk, will need PT and OT dementia History of Present Illness History of Present Illness 02/04/2022 No acute events overnight. Patient seen examined bedside. AF and VSS. Patient still waiting for placement. Discussion with family pending. Patient's chart, labs, images were reviewed and discussed with RN 02/03/2022 No acute events overnight. Patient seen examined bedside. Patient waiting for placement. Possible return to [facility]. Patient's chart, labs, images were reviewed and discussed with RN 02/02/2022 No acute events overnight. Patient seen examined bedside. No concerns from nursing. AF and VSS. Pending SNF placement. Patient's chart, labs, images were reviewed and discussed with RN 02/01/2022: Patient seen and examined at bedside. She has no complaints today. Afebrile. [place] referrals pending; discussed with drug abuse social worker and RN. 01/31/2022 Patient seen and examined, discussed with RN Chart reviewed She is going to senior care in a day or 2 01/30/2022 Patient seen and examined Discussed with RN Chart reviewed Discussed with case finishermanager diversity discharge planning in progress 01/29 - about the same, no event last 23 hours, plan skilled dementia is limiting 01/28 she fell last night, req. russ to her scalp OK today, coherent 12/23, up to commode, her was here earlier and was tearful cont current PT and OT cont the pt and ot IV abx UTI better Vitals/I&O Vitals/I&O: Vital Signs Date Time Temp Pulse Resp B/P (MAP) Pulse Ox O2 Delivery O2 Flow Rate FiO2 02/04/22 11:14 98.0 78 20 128/68 (88) 96 Room Air 98.0 I & O 02/03/22 02/03/22 02/04/22 15:00 23:00 07:00 Intake Total 240 ml 0 ml Output Total 0 ml Balance 240 ml 0 ml Physical Exam Physical Exam: not oriented, General: Alert, Cooperative, No acute distress Heart: Regular rate Lungs: Clear Abdomen: Soft Extremities: No clubbing, Normal pulses Skin: No rashes Assessment and Plan Assessmemt and Plan Problems Medical Problems: (1) Altered mental status Status: Acute (2) Fever Status: Acute (3) Sepsis Status: Acute (4) UTI (urinary tract infection) Status: Acute Comment Review of Relevant I have reviewed the following items kimberley (where applicable) has been applied. Justifications for Admission Other Justification TRAV CHEATHAM MD Feb 04, 2022 11:41
[2022-02-04 14:42] VITALS: BP 113/68
[2022-02-04 19:45] VITALS: BP 92/53
[2022-02-04] MEDS: ATORVASTATIN CALCIUM 40 MG TABLET. PO SCH (20:21)
[2022-02-04] MEDS: MIRTAZAPINE 15 MG TABLET PO SCH (20:23)
[2022-02-04 23:48] VITALS: BP 147/71
[2022-02-05 03:14] VITALS: BP 145/71
[2022-02-05 07:00] VITALS: BP 161/82
[2022-02-05] MEDS: DONEPEZIL HCL 10 MG TABLET. PO SCH (08:27)
[2022-02-05] MEDS: POTASSIUM CHLORIDE 20 MEQ TABLET.ER. PO SCH (08:27)
[2022-02-05] MEDS: CARVEDILOL 6.25 MG TABLET. PO SCH ×2 (08:28→18:39)
[2022-02-05] MEDS: LACTOBACILLUS RHAMNOSUS GG 1 CAPSULE. PO SCH ×2 (08:28→20:04)
[2022-02-05] MEDS: CHOLECALCIFEROL (VITAMIN D3) 1,000 UNIT TABLET PO SCH (08:28)
[2022-02-05] MEDS: HALOPERIDOL 5 MG TABLET. PO SCH ×2 (08:28→20:05)
[2022-02-05] MEDS: DULoxetine HCL 30 MG CAPSULE.DR PO SCH (08:28)
[2022-02-05] MEDS: LOSARTAN POTASSIUM 25 MG TABLET. PO SCH (08:28)
[2022-02-05] MEDS: MEMANTINE 10 MG TABLET. PO SCH ×2 (08:28→20:04)
[2022-02-05 10:00] VITALS: BP 116/61
--- NOTE | 2022-02-05 10:12 | PDOC ---
[employer] [facility] PROGRESS NOTE Date of Service DOS: DATE: 02/05/22 TIME: 10:11 Chief Complaint Chief Complaint sepsis UTI weakness, fall risk, will need PT and OT dementia History of Present Illness History of Present Illness 02/05/2022 No acute events overnight. Patient seen examined bedside. AF and VSS. No concerns from nursing. Pending placement. Patient's chart, labs, images were reviewed and discussed with RN 02/04/2022 No acute events overnight. Patient seen examined bedside. AF and VSS. Patient still waiting for placement. Discussion with family pending. Patient's chart, labs, images were reviewed and discussed with RN 02/03/2022 No acute events overnight. Patient seen examined bedside. Patient waiting for placement. Possible return to [facility]. Patient's chart, labs, images were reviewed and discussed with RN 02/02/2022 No acute events overnight. Patient seen examined bedside. No concerns from nursing. AF and VSS. Pending SNF placement. Patient's chart, labs, images were reviewed and discussed with RN 02/01/2022: Patient seen and examined at bedside. She has no complaints today. Afebrile. [place] referrals pending; discussed with social science analyst and RN. 01/31/2022 Patient seen and examined, discussed with RN Chart reviewed She is going to [facility] in a day or 2 01/30/2022 Patient seen and examined Discussed with RN Chart reviewed Discussed with case management directorreports analysis manager discharge planning in progress 01/29 - about the same, no event last 23 hours, plan skilled dementia is limiting 01/28 she fell last night, req. russ to her scalp OK today, coherent 2/, up to commode, her was here earlier and was tearful cont current PT and OT cont the pt and ot IV abx UTI better Vitals/I&O Vitals/I&O: Vital Signs Date Time Temp Pulse Resp B/P (MAP) Pulse Ox O2 Delivery O2 Flow Rate FiO2 02/05/22 08:28 78 161/82 02/05/22 07:50 Room Air 02/05/22 07:00 97.6 18 96 97.6 I & O 02/04/22 02/04/22 02/05/22 15:00 23:00 07:00 Intake Total 350 ml 200 ml 0 ml Balance 350 ml 200 ml 0 ml Physical Exam Physical Exam: not oriented, General: Alert, Cooperative, No acute distress Heart: Regular rate Lungs: Clear Abdomen: Soft Extremities: No clubbing, Normal pulses Skin: No rashes Assessment and Plan Assessmemt and Plan Problems Medical Problems: (1) Altered mental status Status: Acute (2) Fever Status: Acute (3) Sepsis Status: Acute (4) UTI (urinary tract infection) Status: Acute Comment Review of Relevant I have reviewed the following items kimberley (where applicable) has been applied. Justifications for Admission Other Justification TRAV CHEATHAM MD Feb 05, 2022 10:12
[2022-02-05 15:00] VITALS: BP 106/56
[2022-02-05 19:00] VITALS: BP 124/64
[2022-02-05] MEDS: ATORVASTATIN CALCIUM 40 MG TABLET. PO SCH (20:05)
[2022-02-05] MEDS: MIRTAZAPINE 15 MG TABLET PO SCH (20:44)
[2022-02-05 23:00] VITALS: BP 124/58
[2022-02-06 03:00] VITALS: BP 118/62
[2022-02-06 07:00] VITALS: BP 166/80
[2022-02-06] MEDS: CARVEDILOL 6.25 MG TABLET. PO SCH (07:30)
[2022-02-06] MEDS: POTASSIUM CHLORIDE 20 MEQ TABLET.ER. PO SCH (07:30)
[2022-02-06] MEDS: HALOPERIDOL 5 MG TABLET. PO SCH (08:06)
[2022-02-06] MEDS: LACTOBACILLUS RHAMNOSUS GG 1 CAPSULE. PO SCH (08:06)
[2022-02-06] MEDS: MEMANTINE 10 MG TABLET. PO SCH (08:06)
[2022-02-06] MEDS: DONEPEZIL HCL 10 MG TABLET. PO SCH (08:06)
[2022-02-06] MEDS: CHOLECALCIFEROL (VITAMIN D3) 1,000 UNIT TABLET PO SCH (08:06)
[2022-02-06] MEDS: LOSARTAN POTASSIUM 25 MG TABLET. PO SCH (08:07)
[2022-02-06] MEDS: DULoxetine HCL 30 MG CAPSULE.DR PO SCH (08:07)
--- NOTE | 2022-02-06 09:55 | NUR ---
SW following. Discussed with RN, insurance approved transfer to [facility] for SNF. Awaiting discharge orders and transportation time. Addendum: 02/06/22 at 1209 by CHARLES ERICKSON Discharge orders faxed. Transportation arranged by [facility] for between [id number]. DRE attempted to contact pt's , however was not able to reach her at either numbers. RN notified.
--- NOTE | 2022-02-06 10:51 | SNU/HH DC ---
DISCHARGE ORDERS DISCHARGE INFORMATION: DISCHARGE DATE: Feb 06, 2022 FINAL DIAGNOSIS Problems Medical Problems: (1) Altered mental status Status: Acute (2) Fever Status: Acute (3) Sepsis Status: Acute (4) UTI (urinary tract infection) Status: Acute CONDITION ON DISCHARGE: Guarded CODE STATUS: Code Status: DNR/DNI FDC: SNF STAY <30 DAYS: Yes POST DISCHARGE ORDERS: ACTIVITY ORDERS: Resume previous activity WEIGHT BEARING STATUS: As tolerated DIET AFTER DISCHARGE: Cardiac FOLLOW-UP: PHYSICIAN FOLLOW-UP: PCP within 2 weeks of discharge LAB ORDERS FOR FOLLOW-UP: CBC, CMP TREATMENT/EQUIPMENT ORDERS: Physical Therapy For: Evalulation/Treatment Occupational Therapy For: Evaluation/Treatment DISCHARGE MEDICATIONS: Home Meds Reported Medications Cholecalciferol (Vitamin D3) (Vitamin D3 ) 25 Mcg Tablet, 50 MCG PO DAILY for SUPPLEMENT, TAB 1,000 UNITS = 25 MCG 01/25/22 Trazodone Hcl (TRAZODONE HCL) 100 Mg Tablet, 1 TAB PO QHS for , #30 TAB 01/25/22 Memantine Hcl (NAMENDA) 10 Mg Tablet, 1 TAB PO BID for , #180 TAB 1 Refill 01/25/22 Mirtazapine (MIRTAZAPINE) 45 Mg Tablet, 1 TAB PO QHS for , #30 TAB 1 Refill 01/25/22 Melatonin (MELATONIN) 10 Mg Capsule, 1 CAP PO QHS for sleep for 30 Days, #30 CAP 0 Refills 01/25/22 Losartan Potassium (COZAAR ) 25 Mg Tablet, 25 MG PO DAILY for HYPERTENSION, TAB 01/25/22 Haloperidol (HALOPERIDOL) 5 Mg Tablet, 0.5 TAB PO BID for , #30 TAB 1 Refill 01/25/22 Colloidal Oatmeal (Eucerin Eczema Relief) 226 Gm Cream..g., 1 JUDY TP PRN DAILY PRN for DRY SKIN / SCALING for 30 Days, #226 GM 0 Refills 01/25/22 Duloxetine Hcl (DULOXETINE HCL) 60 Mg Capsule.dr, 60 MG PO DAILY for , CAP 01/25/22 Donepezil Hcl (DONEPEZIL HCL) 10 Mg Tablet, 1 TAB PO DAILY for , #90 TAB 1 Refill 01/25/22 Carvedilol (CARVEDILOL ) 6.25 Mg Tablet, 6.25 MG PO BIDWMEALS for CARDIAC, TAB 01/25/22 Atorvastatin Calcium (Atorvastatin Calcium) 80 Mg Tablet, 80 MG PO QHS for FOR HIGH CHOLESTEROL, TAB 01/25/22 Acetaminophen (ACETAMINOPHEN) 325 Mg Tablet, 2 TAB PO PRN Q6HRS PRN for pain or fever for 30 Days, #30 TAB 0 Refills 01/25/22 TRAV CHEATHAM MD Feb 06, 2022 10:51
[2022-02-06 11:00] VITALS: BP 137/76
--- NOTE | 2022-02-10 07:16 | PDOC3 ---
[facility]-Discharge Summary Date of Admission: Date of Admission: Jan 25, 2022 Date of Discharge: Date of Discharge: Feb 06, 2022 Discharge Diagnosis: Discharge Diagnosis: sepsis UTI weakness, fall risk, will need PT and OT dementia Hospital Course: Hospital Course: 02/05/2022 No acute events overnight. Patient seen examined bedside. AF and VSS. No concerns from nursing. Pending placement. Patient's chart, labs, images were reviewed and discussed with RN 02/04/2022 No acute events overnight. Patient seen examined bedside. AF and VSS. Patient still waiting for placement. Discussion with family pending. Patient's chart, labs, images were reviewed and discussed with RN 02/03/2022 No acute events overnight. Patient seen examined bedside. Patient waiting for placement. Possible return [facility]. Patient's chart, labs, images were reviewed and discussed with RN 02/02/2022 No acute events overnight. Patient seen examined bedside. No concerns from nursing. AF and VSS. Pending SNF placement. Patient's chart, labs, images were reviewed and discussed with RN 02/01/2022: Patient seen and examined at bedside. She has no complaints today. Afebrile. [place] referrals pending; discussed with protective services social worker and RN. 01/31/2022 Patient seen and examined, discussed with RN Chart reviewed [facility] 01/30/2022 Patient seen and examined Discussed with RN Chart reviewed Discussed with child support case officermanager occupational discharge planning in progress 01/29 - about the same, no event last 23 hours, plan skilled dementia is limiting 01/28 she fell last night, req. russ to her scalp OK today, coherent 12/23, up to commode, her was here earlier and was tearful cont current PT and OT 72 year old female with past medical history Alzheimer's dementia presents for evaluation of altered mental status and fever. History obtained from significant other who states she noticed patient with onset of weakness yesterday. Weakness has progressed today patient now requires assistance to get to and from the bathroom. On arrival patient is febrile with a temperature 104. Patient is alert but very lethargic. Patient tracks with her eyes moves all extremities answers yes no to questions. Significant other states patient usually ambulates without assist is alert and very conversive. Disposition: Disposition/Orders: D/C to Another Facility Activity: Activity: Resume previous activity Diet: Diet: Cardiac Medications: Home Meds Reported Medications Cholecalciferol (Vitamin D3) (Vitamin D3 ) 25 Mcg Tablet, 50 MCG PO DAILY for SUPPLEMENT, TAB 1,000 UNITS = 25 MCG 01/25/22 Trazodone Hcl (TRAZODONE HCL) 100 Mg Tablet, 1 TAB PO QHS for , #30 TAB 01/25/22 Memantine Hcl (NAMENDA) 10 Mg Tablet, 1 TAB PO BID for , #180 TAB 1 Refill 01/25/22 Mirtazapine (MIRTAZAPINE) 45 Mg Tablet, 1 TAB PO QHS for , #30 TAB 1 Refill 01/25/22 Melatonin (MELATONIN) 10 Mg Capsule, 1 CAP PO QHS for sleep for 30 Days, #30 CAP 0 Refills 01/25/22 Losartan Potassium (COZAAR ) 25 Mg Tablet, 25 MG PO DAILY for HYPERTENSION, TAB 01/25/22 Haloperidol (HALOPERIDOL) 5 Mg Tablet, 0.5 TAB PO BID for , #30 TAB 1 Refill 01/25/22 Colloidal Oatmeal (Eucerin Eczema Relief) 226 Gm Cream..g., 1 JUDY TP PRN DAILY PRN for DRY SKIN / SCALING for 30 Days, #226 GM 0 Refills 01/25/22 Duloxetine Hcl (DULOXETINE HCL) 60 Mg Capsule.dr, 60 MG PO DAILY for , CAP 01/25/22 Donepezil Hcl (DONEPEZIL HCL) 10 Mg Tablet, 1 TAB PO DAILY for , #90 TAB 1 Refill 01/25/22 Carvedilol (CARVEDILOL ) 6.25 Mg Tablet, 6.25 MG PO BIDWMEALS for CARDIAC, TAB 01/25/22 Atorvastatin Calcium (Atorvastatin Calcium) 80 Mg Tablet, 80 MG PO QHS for FOR HIGH CHOLESTEROL, TAB 01/25/22 Acetaminophen (ACETAMINOPHEN) 325 Mg Tablet, 2 TAB PO PRN Q6HRS PRN for pain or fever for 30 Days, #30 TAB 0 Refills 01/25/22 Scheduled Atorvastatin Calcium (Atorvastatin Calcium), 80 MG PO QHS, (Reported) Carvedilol (Carvedilol ), 6.25 MG PO BIDWMEALS, (Reported) Cholecalciferol (Vitamin D3) (Vitamin D3 ), 50 MCG PO DAILY, (Reported) Donepezil Hcl (Donepezil Hcl), 1 TAB PO DAILY, (Reported) Duloxetine Hcl (Duloxetine Hcl), 60 MG PO DAILY, (Reported) Haloperidol (Haloperidol), 0.5 TAB PO BID, (Reported) Losartan Potassium (Cozaar ), 25 MG PO DAILY, (Reported) Melatonin (Melatonin), 1 CAP PO QHS, (Reported) Memantine Hcl (Namenda), 1 TAB PO BID, (Reported) Mirtazapine (Mirtazapine), 1 TAB PO QHS, (Reported) Trazodone Hcl (Trazodone Hcl), 1 TAB PO QHS, (Reported) Scheduled PRN Acetaminophen (Acetaminophen), 2 TAB PO PRN Q6HRS PRN for pain or fever, (Reported) Colloidal Oatmeal (Eucerin Eczema Relief), 1 JUDY TP PRN DAILY PRN for DRY SKIN / SCALING, (Reported) Total Time: Total Time: Total time spent was 40 minutes in preparing scripts, discharge planning with SWI and RN and preparing this discharge summary Patient seen and examined on day of discharge. No acute abnormal findings. Justicifation of Admission Dx: Justifications for Admission: Justification of Admission Dx: Yes Sepsis: Altered Mental Status TRAV CHEATHAM MD Feb 10, 2022 07:16
[2022-02-15] MEDS ORDERED: CEFD300C PO (10:13)
[2022-02-16] MEDS ORDERED: LORA-434 PO (10:00)
== END 2022-02-06 13:33 | DRG 872 ==
LOC: ER 20:26 → 5 NORTH 20:49
PROVIDERS: ADMIT Internal Medicine; ATTEND Internal Medicine
PROC: 0HQ0XZZ Repair Scalp Skin, External Approach (ICD-10-PCS; principal; 2022-01-27)
DX: A41.9 Sepsis, unspecified organism (principal); N39.0 Urinary tract infection, site not specified; E78.5 Hyperlipidemia, unspecified; F02.80 Dementia in other diseases classified elsewhere, unspecified severity, without behavioral disturbance, psychotic disturbance, mood disturbance, and anxiety; F43.10 Post-traumatic stress disorder, unspecified; G30.9 Alzheimer's disease, unspecified; I10 Essential (primary) hypertension; Z96.611 Presence of right artificial shoulder joint; Z96.612 Presence of left artificial shoulder joint; Z20.822 Contact with and (suspected) exposure to COVID-19; F32.A Depression, unspecified; F41.9 Anxiety disorder, unspecified; Z90.49 Acquired absence of other specified parts of digestive tract; Z90.710 Acquired absence of both cervix and uterus; Z88.0 Allergy status to penicillin; S01.01XA Laceration without foreign body of scalp, initial encounter; W01.0XXA Fall on same level from slipping, tripping and stumbling without subsequent striking against object, initial encounter; Y93.89 Activity, other specified; Y92.89 Other specified places as the place of occurrence of the external cause; Y99.8 Other external cause status
CPT/HCPCS: 36415; 70450; 71045; 72125; 80048; 80053; 81001; 83605; 83735; 84484; 85007; 85025; 87040; 87077; 87086; 87186; 87426; 87804; 93005; 96361; 96374; J0696; J2060; J3475; J3480; J7030; U0003; 97110-GP; 97116-GP; 97530-GO; 97530-GP; 97535-GO; 99285-25; G0378

== ENCOUNTER 2022-02-12 10:06 | Inpatient (IN) | payer MEDICARE ==
[~2022-02-12] VITALS: Ht 165.1 cm; Wt 54.3 kg
[~2022-02-12 10:06] MED LIST changes: +ACET325T21 PO; +ATOR80TA72 PO; +CARV6.2511 PO; +CHOL10004 PO; +COLL226C TP; +DONE10TA7 PO; +DULO60CA45 PO; +HALO5TAB PO; +LOSA25TA PO; +MELA10CA PO; +MEMA10TA PO; +MIRT45TA58 PO; +TRAZ-123 PO
--- NOTE | 2022-02-12 10:30 | ED.ADGEN ---
Past Medical History Past Medical History: Anxiety, Dementia, Depression, Hypertension Additional Past Medical Histor: HYPERLIPIDEMA,PTSD,CERVICALGIA Past Surgical History: Cholecystectomy, Hysterectomy, Other Additional Past Surgical Histo: BILATERAL SHOULDER REPLACEMENT, LOWER BACK, L knee Smoking Status: Never Smoker Alcohol Use: Sober General Adult EDM: Chief Complaint: OTHER COMPLAINTS HPI: HPI: Patient is a 72 year old female coming in via EMS from [facility] for lethargy. Per EMS report the staff woke up about 1.5 hours prior to arrival and says she was sleepier than normal. He went to check on her about 30 minutes later and took vital signs of she was hypertensive at 160/101 (patient has a history of hypertension). He said that she was still sleepy but oriented at her baseline of GCS 14 due to Alzheimer's dementia. Per chart review patient was admitted at this facility about 3 weeks ago for sepsis. Patient herself has no complaints, denies any pain, headaches, vision changes, recent illness or cough. States she has had good p.o. intake. Review of Systems: Review of Systems: All other systems within normal limits except for as noted in the HPI Current Medications: Current Medications Medications (Trade) Dose Ordered Sig/Kim Start Time Stop Time Status Last Admin Dose Admin Ceftriaxone Sodium (Rocephin) 1 gm 1X ONCE 02/12/22 13:00 02/12/22 13:01 DC 02/12/22 12:50 1 GM Sodium Chloride 500 ml @ 500 mls/hr 1X ONCE 02/12/22 12:30 02/12/22 13:29 DC 02/12/22 12:50 500 MLS/HR Allergies: Allergies: Allergies Coded Allergies Type Severity Reaction Last Updated Verified Penicillins Allergy Intermediate 02/12/22 Yes Physical Exam: PE: Constitutional: Well developed, well nourished, no acute distress, non-toxic appearance. [] HENT: Normocephalic, atraumatic, bilateral external ears normal, oropharynx moist, no oral exudates, nose normal. [] Eyes: PERRLA, EOMI, conjunctiva normal, no discharge. [] Neck: Normal range of motion, no tenderness, supple, no stridor. [] Cardiovascular:Heart rate regular rhythm, no murmur [] Lungs & Thorax: Bilateral breath sounds clear to auscultation [] Abdomen: Bowel sounds normal, soft, no tenderness, no masses, no pulsatile masses. [] Skin: Warm, dry, no erythema, no rash. [] Back: No tenderness, no CVA tenderness. [] Extremities: No tenderness, no cyanosis, no clubbing, ROM intact, no edema. [] Neurologic: Alert and oriented X 3, normal motor function, normal sensory function, no focal deficits noted. [] Psychologic: Affect normal, judgement normal, mood normal. [] Current Patient Data: Labs: Laboratory Tests Test 02/12/22 10:28 02/12/22 11:05 02/12/22 11:34 White Blood Count 7.5 x10^3/uL (4.0-11.0) Red Blood Count 4.33 x10^6/uL (3.50-5.40) Hemoglobin 12.7 g/dL (12.0-15.5) Hematocrit 38.5 % (36.0-47.0) Mean Corpuscular Volume 89 fL (79-100) Mean Corpuscular Hemoglobin 29 pg (25-35) Mean Corpuscular Hemoglobin Concent 33 g/dL (31-37) Red Cell Distribution Width 13.3 % (11.5-14.5) Platelet Count 245 x10^3/uL (140-400) Neutrophils (%) (Auto) 75 % (31-73) H Lymphocytes (%) (Auto) 13 % (24-48) L Monocytes (%) (Auto) 9 % (0-9) Eosinophils (%) (Auto) 2 % (0-3) Basophils (%) (Auto) 1 % (0-3) Neutrophils # (Auto) 5.6 x10^3/uL (1.8-7.7) Lymphocytes # (Auto) 1.0 x10^3/uL (1.0-4.8) Monocytes # (Auto) 0.7 x10^3/uL (0.0-1.1) Eosinophils # (Auto) 0.1 x10^3/uL (0.0-0.7) Basophils # (Auto) 0.1 x10^3/uL (0.0-0.2) Sodium Level 142 mmol/L (136-145) Potassium Level 4.1 mmol/L (3.5-5.1) Chloride Level 104 mmol/L (98-107) Carbon Dioxide Level 30 mmol/L (21-32) Anion Gap 8 (6-14) Blood Urea Nitrogen 20 mg/dL (7-20) Creatinine 1.1 mg/dL (0.6-1.0) H Estimated GFR (Cockcroft-Gault) 49.1 BUN/Creatinine Ratio 18 (6-20) Glucose Level 108 mg/dL (70-99) H Lactic Acid Level 1.0 mmol/L (0.4-2.0) Calcium Level 10.2 mg/dL (8.5-10.1) H Phosphorus Level 3.5 mg/dL (2.6-4.7) Magnesium Level 1.9 mg/dL (1.8-2.4) Total Bilirubin 0.7 mg/dL (0.2-1.0) Aspartate Amino Transferase (AST) 45 U/L (15-37) H Alanine Aminotransferase (ALT) 38 U/L (14-59) Alkaline Phosphatase 133 U/L (46-116) H Troponin I High Sensitivity 10 ng/L (4-50) [id number] Natriuretic Peptide 94 pg/mL (0-124) Total Protein 6.2 g/dL (6.4-8.2) L Albumin 3.5 g/dL (3.4-5.0) Albumin/Globulin Ratio 1.3 (1.0-1.7) Urine Collection Type Unknown Urine Color (Auto) Yellow Urine Turbidity Hazy Urine pH (Auto) 6.0 (<5.0-8.0) Urine Specific Leopold 1.014 (1.000-1.030) Urine Protein (Auto) Negative mg/dL (Negative) Urine Glucose (Auto)(UA) Negative mg/dL (Negative) Urine Ketones (Auto) Negative mg/dL (Negative) Urine Blood (Auto) Negative (Negative) Urine Nitrite Positive (Negative) Urine Bilirubin (Auto) Negative (Negative) Urine Urobilinogen (Auto) Normal mg/dL (Normal) Urine Leukocyte Esterase (Auto) Large (Negative) Urine RBC 0 /HPF (0-2) Urine WBC 20-40 /HPF (0-4) Urine Bacteria Many /HPF (0-FEW) Urine Mucus Slight /LPF Urine Opiates Screen Neg (NEG) Urine Methadone Screen Neg (NEG) Urine Barbiturates Neg (NEG) Urine Phencyclidine Screen Neg (NEG) Urine Amphetamine/Methamphetamine Neg (NEG) Urine Benzodiazepines Screen Neg (NEG) Urine Cocaine Screen Neg (NEG) Urine Cannabinoids Screen Neg (NEG) Urine Ethyl Alcohol Neg (NEG) POC Venous pH 7.36 (7.32-7.42) POC Venous pCO2 60 mmHg (41-51) H POC Venous pO2 36 mmHg (20-40) Venous Blood HCO3 34 mmol/L (24-28) H POC Venous O2 Saturation (Brennon) 65 % POC FiO2 21.0 Laboratory Tests 02/12/22 10:28 Laboratory Tests 02/12/22 10:28 Vital Signs: Vital Signs Date Time Temp Pulse Resp B/P (MAP) Pulse Ox O2 Delivery O2 Flow Rate FiO2 02/12/22 11:34 85 12 116/66 (83) Room Air 02/12/22 10:51 96 02/12/22 10:15 97.8 97.8 EKG: EKG: Sinus rhythm, heart rate 80 bpm, normal axis, prominent T waves in anerio lateral leads Heart Score: C/O Chest Pain: No Risk Factors: Risk Factors: DM, Current or recent (<one month) smoker, HTN, HLP, family history of CAD, obesity. Risk Scores: Score 0 - 3: 2.5% MACE over next 6 weeks - Discharge Home Score 4 - 6: 20.3% MACE over next 6 weeks - Admit for Clinical Observation Score 7 - 10: 72.7% MACE over next 6 weeks - Early Invasive Strategies Radiology/Procedures: Radiology/Procedures: [] Course & Med Decision Making: Course & Med Decision Making Pertinent Labs and Imaging studies reviewed. (See chart for details) [] Dragon Disclaimer: Dragon Disclaimer: This electronic medical record was generated, in whole or in part, using a voice recognition dictation system. Departure Departure Impression: Primary Impression: Altered mental status Additional Impression: UTI (urinary tract infection) Disposition: ADMITTED INPATIENT Admitting Physician: RUDDY Condition: STABLE Referrals: TOMASZ LORENZO NP (PCP) Problem Qualifiers KAM KELLY MD Feb 12, 2022 10:30
[2022-02-12 10:44] LABS: BASO # 0.1 x10^3/uL (0.0-0.2); BASO % 1 % (0-3); EOS # 0.1 x10^3/uL (0.0-0.7); EOS % 2 % (0-3); HEMATOCRIT 38.5 % (36.0-47.0); HEMOGLOBIN 12.7 g/dL (12.0-15.5); LYMPH % 13 % (24-48); MEAN CORPUSCULAR HEMOGLOBIN 29 pg (25-35); MEAN CORPUSCULAR HGB CONC 33 g/dL (31-37); MEAN CORPUSCULAR VOLUME 89 fL (79-100); MONO # 0.7 x10^3/uL (0.0-1.1); MONO % 9 % (0-9); NEUT # 5.6 x10^3/uL (1.8-7.7); NEUT % 75 % (31-73); PLATELET COUNT 245 x10^3/uL (140-400); RED BLOOD COUNT 4.33 x10^6/uL (3.50-5.40); RED CELL DISTRIBUTION WIDTH 13.3 % (11.5-14.5); WHITE BLOOD COUNT 7.5 x10^3/uL (4.0-11.0)
[2022-02-12 10:52] LABS: CALCIUM 10.2 mg/dL (8.5-10.1); CREATININE 1.1 mg/dL (0.6-1.0); GFR 49.1; POTASSIUM 4.1 mmol/L (3.5-5.1)
[2022-02-12 10:58] LABS: ALBUMIN 3.5 g/dL (3.4-5.0); ALBUMIN/GLOBULIN RATIO 1.3 (1.0-1.7); MAGNESIUM 1.9 mg/dL (1.8-2.4); PHOSPHORUS 3.5 mg/dL (2.6-4.7); TOTAL BILIRUBIN 0.7 mg/dL (0.2-1.0); TOTAL PROTEIN 6.2 g/dL (6.4-8.2)
[2022-02-12 11:40] LABS: ISTAT BE VENOUS 9 mmol/L (0-3); ISTAT HCO3 VEN 34 mmol/L (24-28); ISTAT PCO2 VEN 60 mmHg (41-51); ISTAT PH VEN 7.36 (7.32-7.42); ISTAT PO2 VEN 36 mmHg (20-40); ISTAT SAT O2 VEN 65 %; ISTAT TCO2 VEN 36 mmol/L (21-32)
[2022-02-12 11:47] LABS: BARBITURATES NEG (NEG); BENZODIAZEPINES NEG (NEG); CANNABINOIDS NEG (NEG); COCAINE NEG (NEG); METHADONE NEG (NEG); OPIATES NEG (NEG); PHENCYCLIDINE NEG (NEG)
[2022-02-12 11:50] LABS: AMPHETAMINE/METHAMPHETAMINE NEG (NEG)
--- NOTE | 2022-02-12 12:01 | RAD ---
INDICATION: Reason: ams / Spl. Instructions: / History: COMPARISON: January 27, 2022 TECHNIQUE: Axial CT images obtained through the head without intravenous contrast. One or more of the following individualized dose reduction techniques were utilized for this examinat ion: 1. Automated exposure control; 2. Adjustment of the mA and/or kV according to patient size; 3 . Use of iterative reconstruction technique. FINDINGS: No intracranial hemorrhage. No significant midline shift. Ventricles and sulci are globally prominent. Scattered foci of low attenuation within the white matter. Interval decrease in size of scalp cephalohematoma posteriorly with russ seen. IMPRESSION: * No acute intracranial hemorrhage. * Scattered regions of low attenuation within the white matter. Non-specific in nature but a common finding and frequently secondary to small vessel ischemic disease. Electronically signed by: Scot Samson MD (02/12/2022 11:59 AM) [id number]
[2022-02-12 12:10] LABS: RBC,URINE 0 /HPF (0-2)
[2022-02-12 12:11] LABS: BACTERIA,URINE MANY /HPF (0-FEW); WBC,URINE 20-40 /HPF (0-4)
[2022-02-12] MEDS ORDERED: IV NORMAL SALINE 500ML BAG 500 ML IV ONE (12:30)
[2022-02-12] MEDS ORDERED: cefTRIAXone IV Push 1 GM VIAL. IVP ONE (13:00)
--- NOTE | 2022-02-12 13:59 | RAD ---
EXAMINATION: Abdominal complete acute radiograph. VIEWS: Single view of the chest 2 views of the abdomen COMPARISON: Chest radiograph dated 01/24/2022 INDICATION: 72 years, Female, altered mental status. FINDINGS: Nonobstructive bowel gas pattern. Moderate to large amount of stool in the rectum. No gross pneumoper itoneum.No abnormal intra-abdominal calcifications. Normal cardiomediastinal silhouette. Biapical ple ural thickening. No focal consolidation, pleural effusion or pneumothorax.No acute osseous process. B ilateral shoulder prosthesis. Cholecystectomy clips. IMPRESSION: 1. No acute cardiopulmonary abnormality. 2. Nonobstructive bowel gas pattern. 3. Moderate to large amount of rectal stool burden. Electronically signed by: Frank Newberry MD (02/12/2022 1:57 PM) [facility]
[2022-02-12 15:54] VITALS: BP 116/67
--- NOTE | 2022-02-12 16:06 | PDOC1 ---
History and Physical Date of Service: DOS: DATE: 02/12/22 TIME: 15:56 Chief Complaint: Chief Complain: Altered mental status. History of Present Illness: HPI: 72 year old female coming in via EMS from [facility] for lethargy. Per EMS report the staff woke up about 1.5 hours prior to arrival and says she was sleepier than normal. He went to check on her about 30 minutes later and took vital signs of she was hypertensive at 160/101 (patient has a history of hypertension). He said that she was still sleepy but oriented at her baseline of GCS 14 due to Alzheimer's dementia. Per chart review patient was admitted at this facility about 3 weeks ago for sepsis. Patient herself has no complaints, denies any pain, headaches, vision changes, recent illness or cough. States she has had good p.o. intake. Past Medical/Surgical History: PMH/PSH: Past Medical History: Anxiety, Dementia, Depression, Hypertension, HYPERLIPIDEMA,PTSD,CERVICALGIA Past Surgical History: Cholecystectomy, Hysterectomy, BILATERAL SHOULDER REPLACEMENT, LOWER BACK, L knee Allergies: Allergies: Coded Allergies: Penicillins (Verified Allergy, Intermediate, 02/12/22) ROCEPHIN OK Family History: Family History: Reviewed with no relative findings in the chart Social History: Social History: Smoking Status: Never Smoker Alcohol Use: Sober Current Medications: Current Medications Current Medications Ceftriaxone Sodium (Rocephin) 1 gm 1X ONCE IVP Last administered on 02/12/22at 12:50; Start 02/12/22 at 13:00; Stop 02/12/22 at 13:01; Status DC Sodium Chloride 500 ml @ 500 mls/hr 1X ONCE IV Last administered on 02/12/22at 12:50; Start 02/12/22 at 12:30; Stop 02/12/22 at 13:29; Status DC Active Scripts Active Reported Vitamin D3 (Vitamin D) 25 Mcg Tablet 50 Mcg PO DAILY 1,000 UNITS = 25 MCG Trazodone Hcl 100 Mg Tablet 1 Tab PO QHS Namenda (Memantine Hcl) 10 Mg Tablet 1 Tab PO BID Mirtazapine 45 Mg Tablet 1 Tab PO QHS Melatonin 10 Mg Capsule 1 Cap PO QHS 30 Days Cozaar (Losartan Potassium) 25 Mg Tablet 25 Mg PO DAILY Haloperidol 5 Mg Tablet 0.5 Tab PO BID Eucerin Eczema Relief (Colloidal Oatmeal) 226 Gm Cream..g. 1 Josse TP PRN DAILY PRN 30 Days Duloxetine Hcl 60 Mg Capsule.dr 60 Mg PO DAILY Donepezil Hcl 10 Mg Tablet 1 Tab PO DAILY Carvedilol (Carvedilol) 6.25 Mg Tablet 6.25 Mg PO BIDWMEALS Atorvastatin Calcium 80 Mg Tablet 80 Mg PO QHS Acetaminophen 325 Mg Tablet 2 Tab PO PRN Q6HRS PRN 30 Days ROS: Review of Systems Review of System Limited due to dementia and altered mental status Physical Exam: Vital Signs: Vital Signs Date Time Temp Pulse Resp B/P (MAP) Pulse Ox O2 Delivery O2 Flow Rate FiO2 02/12/22 15:54 98.0 75 20 116/67 (83) 93 Room Air 98.0 Physcial Exam: General: Well developed, well nourished, no acute distress, well appearing HEENT: Pupils equally round and reactive to light, EOMI, no discharge, normal conjunctiva Neck: Supple, no nuchal rigidity, no JVD, trachea midline, no tenderness Cardiac: RRR, no murmurs, no gallops, no rubs Chest/Lungs: CTAB, no wheeze, no rhonchi, no crackles Abdomen: soft, non-distended, no guarding, no peritoneal signs, non-tender Back: No tenderness Extremities: no edema, pulses intact, non-tender,capillary refill <3 sec bilateral upper and lower extremities, Neuro: Alert and oriented x 4, no focal deficits, normal speech Labs: Labs: Laboratory Tests Test 02/12/22 10:28 02/12/22 11:05 02/12/22 11:34 White Blood Count 7.5 x10^3/uL (4.0-11.0) Red Blood Count 4.33 x10^6/uL (3.50-5.40) Hemoglobin 12.7 g/dL (12.0-15.5) Hematocrit 38.5 % (36.0-47.0) Mean Corpuscular Volume 89 fL (79-100) Mean Corpuscular Hemoglobin 29 pg (25-35) Mean Corpuscular Hemoglobin Concent 33 g/dL (31-37) Red Cell Distribution Width 13.3 % (11.5-14.5) Platelet Count 245 x10^3/uL (140-400) Neutrophils (%) (Auto) 75 % (31-73) Lymphocytes (%) (Auto) 13 % (24-48) Monocytes (%) (Auto) 9 % (0-9) Eosinophils (%) (Auto) 2 % (0-3) Basophils (%) (Auto) 1 % (0-3) Neutrophils # (Auto) 5.6 x10^3/uL (1.8-7.7) Lymphocytes # (Auto) 1.0 x10^3/uL (1.0-4.8) Monocytes # (Auto) 0.7 x10^3/uL (0.0-1.1) Eosinophils # (Auto) 0.1 x10^3/uL (0.0-0.7) Basophils # (Auto) 0.1 x10^3/uL (0.0-0.2) Sodium Level 142 mmol/L (136-145) Potassium Level 4.1 mmol/L (3.5-5.1) Chloride Level 104 mmol/L (98-107) Carbon Dioxide Level 30 mmol/L (21-32) Anion Gap 8 (6-14) Blood Urea Nitrogen 20 mg/dL (7-20) Creatinine 1.1 mg/dL (0.6-1.0) Estimated GFR (Cockcroft-Gault) 49.1 BUN/Creatinine Ratio 18 (6-20) Glucose Level 108 mg/dL (70-99) Lactic Acid Level 1.0 mmol/L (0.4-2.0) Calcium Level 10.2 mg/dL (8.5-10.1) Phosphorus Level 3.5 mg/dL (2.6-4.7) Magnesium Level 1.9 mg/dL (1.8-2.4) Total Bilirubin 0.7 mg/dL (0.2-1.0) Aspartate Amino Transf (AST/SGOT) 45 U/L (15-37) Alanine Aminotransferase (ALT/SGPT) 38 U/L (14-59) Alkaline Phosphatase 133 U/L (46-116) Troponin I High Sensitivity 10 ng/L (4-50) VF-Zut-W-Type Natriuretic Peptide 94 pg/mL (0-124) Total Protein 6.2 g/dL (6.4-8.2) Albumin 3.5 g/dL (3.4-5.0) Albumin/Globulin Ratio 1.3 (1.0-1.7) Urine Collection Type Unknown Urine Color (Auto) Yellow Urine Turbidity Hazy Urine pH (Auto) 6.0 (<5.0-8.0) Urine Specific [place] 1.014 (1.000-1.030) Urine Protein (Auto) Negative mg/dL (Negative) Urine Glucose (Auto)(UA) Negative mg/dL (Negative) Urine Ketones (Auto) Negative mg/dL (Negative) Urine Blood (Auto) Negative (Negative) Urine Nitrite Positive (Negative) Urine Bilirubin (Auto) Negative (Negative) Urine Urobilinogen (Auto) Normal mg/dL (Normal) Urine Leukocyte Esterase (Auto) Large (Negative) Urine RBC 0 /HPF (0-2) Urine WBC 20-40 /HPF (0-4) Urine Bacteria Many /HPF (0-FEW) Urine Mucus Slight /LPF Urine Opiates Screen Neg (NEG) Urine Methadone Screen Neg (NEG) Urine Barbiturates Neg (NEG) Urine Phencyclidine Screen Neg (NEG) Urine Amphetamine/Methamphetamine Neg (NEG) Urine Benzodiazepines Screen Neg (NEG) Urine Cocaine Screen Neg (NEG) Urine Cannabinoids Screen Neg (NEG) Urine Ethyl Alcohol Neg (NEG) Bedside Venous pH 7.36 (7.32-7.42) Bedside Venous pCO2 60 mmHg (41-51) Bedside Venous pO2 36 mmHg (20-40) Venous Blood HCO3 34 mmol/L (24-28) POC Venous O2 Saturation (Brennon) 65 % Bedside FiO2 21.0 Laboratory Tests Test 02/12/22 10:28 02/12/22 11:05 02/12/22 11:34 White Blood Count 7.5 x10^3/uL (4.0-11.0) Red Blood Count 4.33 x10^6/uL (3.50-5.40) Hemoglobin 12.7 g/dL (12.0-15.5) Hematocrit 38.5 % (36.0-47.0) Mean Corpuscular Volume 89 fL (79-100) Mean Corpuscular Hemoglobin 29 pg (25-35) Mean Corpuscular Hemoglobin Concent 33 g/dL (31-37) Red Cell Distribution Width 13.3 % (11.5-14.5) Platelet Count 245 x10^3/uL (140-400) Neutrophils (%) (Auto) 75 % (31-73) Lymphocytes (%) (Auto) 13 % (24-48) Monocytes (%) (Auto) 9 % (0-9) Eosinophils (%) (Auto) 2 % (0-3) Basophils (%) (Auto) 1 % (0-3) Neutrophils # (Auto) 5.6 x10^3/uL (1.8-7.7) Lymphocytes # (Auto) 1.0 x10^3/uL (1.0-4.8) Monocytes # (Auto) 0.7 x10^3/uL (0.0-1.1) Eosinophils # (Auto) 0.1 x10^3/uL (0.0-0.7) Basophils # (Auto) 0.1 x10^3/uL (0.0-0.2) Sodium Level 142 mmol/L (136-145) Potassium Level 4.1 mmol/L (3.5-5.1) Chloride Level 104 mmol/L (98-107) Carbon Dioxide Level 30 mmol/L (21-32) Anion Gap 8 (6-14) Blood Urea Nitrogen 20 mg/dL (7-20) Creatinine 1.1 mg/dL (0.6-1.0) Estimated GFR (Cockcroft-Gault) 49.1 BUN/Creatinine Ratio 18 (6-20) Glucose Level 108 mg/dL (70-99) Lactic Acid Level 1.0 mmol/L (0.4-2.0) Calcium Level 10.2 mg/dL (8.5-10.1) Phosphorus Level 3.5 mg/dL (2.6-4.7) Magnesium Level 1.9 mg/dL (1.8-2.4) Total Bilirubin 0.7 mg/dL (0.2-1.0) Aspartate Amino Transf (AST/SGOT) 45 U/L (15-37) Alanine Aminotransferase (ALT/SGPT) 38 U/L (14-59) Alkaline Phosphatase 133 U/L (46-116) Troponin I High Sensitivity 10 ng/L (4-50) IX-Icp-R-Type Natriuretic Peptide 94 pg/mL (0-124) Total Protein 6.2 g/dL (6.4-8.2) Albumin 3.5 g/dL (3.4-5.0) Albumin/Globulin Ratio 1.3 (1.0-1.7) Urine Collection Type Unknown Urine Color (Auto) Yellow Urine Turbidity Hazy Urine pH (Auto) 6.0 (<5.0-8.0) Urine Specific [place] 1.014 (1.000-1.030) Urine Protein (Auto) Negative mg/dL (Negative) Urine Glucose (Auto)(UA) Negative mg/dL (Negative) Urine Ketones (Auto) Negative mg/dL (Negative) Urine Blood (Auto) Negative (Negative) Urine Nitrite Positive (Negative) Urine Bilirubin (Auto) Negative (Negative) Urine Urobilinogen (Auto) Normal mg/dL (Normal) Urine Leukocyte Esterase (Auto) Large (Negative) Urine RBC 0 /HPF (0-2) Urine WBC 20-40 /HPF (0-4) Urine Bacteria Many /HPF (0-FEW) Urine Mucus Slight /LPF Urine Opiates Screen Neg (NEG) Urine Methadone Screen Neg (NEG) Urine Barbiturates Neg (NEG) Urine Phencyclidine Screen Neg (NEG) Urine Amphetamine/Methamphetamine Neg (NEG) Urine Benzodiazepines Screen Neg (NEG) Urine Cocaine Screen Neg (NEG) Urine Cannabinoids Screen Neg (NEG) Urine Ethyl Alcohol Neg (NEG) Bedside Venous pH 7.36 (7.32-7.42) Bedside Venous pCO2 60 mmHg (41-51) Bedside Venous pO2 36 mmHg (20-40) Venous Blood HCO3 34 mmol/L (24-28) POC Venous O2 Saturation (Brennon) 65 % Bedside FiO2 21.0 Images: Images PROCEDURE: ACUTE ABDOMEN SERIES EXAMINATION: Abdominal complete acute radiograph. VIEWS: Single view of the chest 2 views of the abdomen COMPARISON: Chest radiograph dated 01/24/2022 INDICATION: 72 years, Female, altered mental status. FINDINGS: Nonobstructive bowel gas pattern. Moderate to large amount of stool in the rectum. No gross pneumoperitoneum.No abnormal intra-abdominal calcifications. Normal cardiomediastinal silhouette. Biapical pleural thickening. No focal consolidation, pleural effusion or pneumothorax.No acute osseous process. Bilateral shoulder prosthesis. Cholecystectomy clips. IMPRESSION: 1. No acute cardiopulmonary abnormality. 2. Nonobstructive bowel gas pattern. 3. Moderate to large amount of rectal stool burden. PROCEDURE: CT HEAD WO CONTRAST INDICATION: Reason: ams / Spl. Instructions: / History: COMPARISON: January 27, 2022 TECHNIQUE: Axial CT images obtained through the head without intravenous contrast. One or more of the following individualized dose reduction techniques were utilized for this examination: 1. Automated exposure control; 2. Adjustment of the mA and/or kV according to patient size; 3. Use of iterative reconstruction technique. FINDINGS: No intracranial hemorrhage. No significant midline shift. Ventricles and sulci are globally prominent. Scattered foci of low attenuation within the white matter. Interval decrease in size of scalp cephalohematoma posteriorly with russ seen. IMPRESSION: * No acute intracranial hemorrhage. * Scattered regions of low attenuation within the white matter. Non-specific in nature but a common finding and frequently secondary to small vessel ischemic disease. Assessment/Plan Assessment/Plan Acute metabolic/infectious encephalopathy Acute hypercapnic respiratory failure Constipation Acute UTI, recurrent Admit to hospitalist service for further management Continue empiric IV antibiotics Pending urine cultures Monitor urine output ID consult for recurrent UTI PT OT evaluation SCD for DVT prophylaxis Regular diet CODE STATUS DNR Discussed with RN and SW Disposition inpatient management as above DPOA: Justifications for Admission Other Justification TRAV CHEATHAM MD Feb 12, 2022 16:06
[2022-02-12] MEDS ORDERED: LORazepam 0.5 MG TABLET PO PRN (16:15)
[2022-02-12] MEDS ORDERED: ZOLPIDEM 5 MG TABLET. PO PRN (16:15)
[2022-02-12] MEDS ORDERED: ONDANSETRON PF 4 MG/2 ML VIAL. IVP PRN (16:15)
[2022-02-12] MEDS ORDERED: diphenhydrAMINE 50 MG/ML VIAL IVP PRN (16:15)
[2022-02-12] MEDS ORDERED: DOCUSATE SODIUM 100 MG CAPSULE. PO PRN (16:15)
[2022-02-12] MEDS ORDERED: PROCHLORPERAZINE 10 MG/2 ML VIAL. IV PRN (16:15)
[2022-02-12] MEDS ORDERED: DEXTROSE 50% 25 GM / 50ML DISP.SYRIN. IV PRN (16:15)
[2022-02-12] MEDS ORDERED: SENNOSIDES 8.6 MG TABLET PO PRN (16:15)
[2022-02-12] MEDS ORDERED: diphenhydrAMINE HCL 25 MG CAPSULE PO PRN ×2 (16:15)
[2022-02-12] MEDS: IV NORMAL SALINE 1000ML BAG 1,000 ML IV SCH (16:48)
[2022-02-12] MEDS ORDERED: C.DIFF MED SCREEN BY RX. MC ONE (18:45)
[2022-02-12 19:00] VITALS: BP 141/72
[2022-02-12 23:27] VITALS: BP 141/66
[2022-02-13] MEDS: IV NORMAL SALINE 1000ML BAG 1,000 ML IV SCH ×3 (02:15→22:15)
[2022-02-13 03:00] VITALS: BP 154/85
--- NOTE | 2022-02-13 04:50 | EKG ---
[facility] [address] [place] [address] Test Date: 2022-02-12 Test Time: 10:17:04 Pat Name: YOLANDA GILLIS Department: Room: [facility] Gender: F Floor Helper: : [id number] Requested By: KAM KELLY Order Number: [id number] Reading MD: Levy Gil MD Measurements Intervals Hosmer Rate: 88 P: 38 SC: 148 QRS: 40 QRSD: 84 T: 61 QT: 350 QTc: 427 Interpretive Statements SINUS RHYTHM Electronically Signed On 02-14-2022 7:01:00 CDT by Levy Gil MD
[2022-02-13 07:15] VITALS: BP 130/72
[2022-02-13 08:16] LABS: BASO # 0.1 x10^3/uL (0.0-0.2); BASO % 1 % (0-3); EOS # 0.3 x10^3/uL (0.0-0.7); EOS % 3 % (0-3); HEMOGLOBIN 11.1 g/dL (12.0-15.5); LYMPH # 1.3 x10^3/uL (1.0-4.8); LYMPH % 17 % (24-48); MEAN CORPUSCULAR HEMOGLOBIN 29 pg (25-35); MEAN CORPUSCULAR HGB CONC 33 g/dL (31-37); MEAN CORPUSCULAR VOLUME 89 fL (79-100); MONO # 0.9 x10^3/uL (0.0-1.1); MONO % 11 % (0-9); NEUT # 5.4 x10^3/uL (1.8-7.7); NEUT % 68 % (31-73); PLATELET COUNT 214 x10^3/uL (140-400); RED BLOOD COUNT 3.83 x10^6/uL (3.50-5.40); RED CELL DISTRIBUTION WIDTH 13.2 % (11.5-14.5); WHITE BLOOD COUNT 7.9 x10^3/uL (4.0-11.0)
[2022-02-13 08:29] LABS: CALCIUM 9.4 mg/dL (8.5-10.1); CREATININE 0.8 mg/dL (0.6-1.0); GFR 70.9; MAGNESIUM 1.6 mg/dL (1.8-2.4); PHOSPHORUS 2.6 mg/dL (2.6-4.7); POTASSIUM 3.5 mmol/L (3.5-5.1)
[2022-02-13] MEDS: CARVEDILOL 6.25 MG TABLET. PO SCH ×2 (08:40→17:00)
[2022-02-13] MEDS: ENOXAPARIN 40 MG/0.4 ML SYRINGE. SQ SCH (08:40)
[2022-02-13] MEDS: LOSARTAN POTASSIUM 25 MG TABLET. PO SCH (08:40)
[2022-02-13] MEDS: CHOLECALCIFEROL (VITAMIN D3) 1,000 UNIT TABLET PO SCH (08:41)
[2022-02-13] MEDS: HALOPERIDOL 5 MG TABLET. PO SCH ×2 (08:41→21:19)
[2022-02-13] MEDS: MEMANTINE 10 MG TABLET. PO SCH ×2 (08:41→21:19)
[2022-02-13] MEDS ORDERED: MINERAL OIL/PETROLATUM TOPICAL CREAM 113GM JAR. TP PRN (09:00)
[2022-02-13] MEDS: DONEPEZIL HCL 10 MG TABLET. PO SCH (09:43)
[2022-02-13] MEDS: DULoxetine HCL 30 MG CAPSULE.DR PO SCH (09:43)
[2022-02-13 11:00] VITALS: BP 114/68
--- NOTE | 2022-02-13 11:00 | PDOC ---
[employer] PROGRESS NOTE Date of Service DOS: DATE: 02/13/22 TIME: 10:58 Chief Complaint Chief Complaint Acute metabolic/infectious encephalopathy Acute hypercapnic respiratory failure Constipation Metabolic cephalopathy UTI History of Present Illness History of Present Illness 02/14/2020 Patient seen and examined Her is present and seems to be good support for her Chart reviewed Discussed with RN Discussed with case management Patient apparently pulled her IV out last night She does have IV Rocephin and fluids ordered we are going to put a new IV and get those going again Vitals/I&O Vitals/I&O: Vital Signs Date Time Temp Pulse Resp B/P (MAP) Pulse Ox O2 Delivery O2 Flow Rate FiO2 02/13/22 08:40 94 130/72 02/13/22 07:15 98.6 16 97 Room Air 98.6 I & O 02/12/22 02/12/22 02/13/22 15:00 23:00 07:00 Intake Total 500 ml Balance 500 ml Physical Exam General: Other (Pleasantly confused) Heart: Regular rate Lungs: Clear Abdomen: Normal bowel sounds Extremities: No clubbing Skin: No rashes Labs Labs: Laboratory Tests Test 02/12/22 11:05 02/12/22 11:34 02/13/22 07:20 Urine Collection Type Unknown Urine Color (Auto) Yellow Urine Turbidity Hazy Urine pH (Auto) 6.0 (<5.0-8.0) Urine Specific [place] 1.014 (1.000-1.030) Urine Protein (Auto) Negative mg/dL (Negative) Urine Glucose (Auto)(UA) Negative mg/dL (Negative) Urine Ketones (Auto) Negative mg/dL (Negative) Urine Blood (Auto) Negative (Negative) Urine Nitrite Positive (Negative) Urine Bilirubin (Auto) Negative (Negative) Urine Urobilinogen (Auto) Normal mg/dL (Normal) Urine Leukocyte Esterase (Auto) Large (Negative) Urine RBC 0 /HPF (0-2) Urine WBC 20-40 /HPF (0-4) Urine Bacteria Many /HPF (0-FEW) Urine Mucus Slight /LPF Urine Opiates Screen Neg (NEG) Urine Methadone Screen Neg (NEG) Urine Barbiturates Neg (NEG) Urine Phencyclidine Screen Neg (NEG) Urine Amphetamine/Methamphetamine Neg (NEG) Urine Benzodiazepines Screen Neg (NEG) Urine Cocaine Screen Neg (NEG) Urine Cannabinoids Screen Neg (NEG) Urine Ethyl Alcohol Neg (NEG) Bedside Venous pH 7.36 (7.32-7.42) Bedside Venous pCO2 60 mmHg (41-51) Bedside Venous pO2 36 mmHg (20-40) Venous Blood HCO3 34 mmol/L (24-28) POC Venous O2 Saturation (Brennon) 65 % Bedside FiO2 21.0 White Blood Count 7.9 x10^3/uL (4.0-11.0) Red Blood Count 3.83 x10^6/uL (3.50-5.40) Hemoglobin 11.1 g/dL (12.0-15.5) Hematocrit 34.0 % (36.0-47.0) Mean Corpuscular Volume 89 fL (79-100) Mean Corpuscular Hemoglobin 29 pg (25-35) Mean Corpuscular Hemoglobin Concent 33 g/dL (31-37) Red Cell Distribution Width 13.2 % (11.5-14.5) Platelet Count 214 x10^3/uL (140-400) Neutrophils (%) (Auto) 68 % (31-73) Lymphocytes (%) (Auto) 17 % (24-48) Monocytes (%) (Auto) 11 % (0-9) Eosinophils (%) (Auto) 3 % (0-3) Basophils (%) (Auto) 1 % (0-3) Neutrophils # (Auto) 5.4 x10^3/uL (1.8-7.7) Lymphocytes # (Auto) 1.3 x10^3/uL (1.0-4.8) Monocytes # (Auto) 0.9 x10^3/uL (0.0-1.1) Eosinophils # (Auto) 0.3 x10^3/uL (0.0-0.7) Basophils # (Auto) 0.1 x10^3/uL (0.0-0.2) Sodium Level 142 mmol/L (136-145) Potassium Level 3.5 mmol/L (3.5-5.1) Chloride Level 106 mmol/L (98-107) Carbon Dioxide Level 29 mmol/L (21-32) Anion Gap 7 (6-14) Blood Urea Nitrogen 17 mg/dL (7-20) Creatinine 0.8 mg/dL (0.6-1.0) Estimated GFR (Cockcroft-Gault) 70.9 Glucose Level 101 mg/dL (70-99) Calcium Level 9.4 mg/dL (8.5-10.1) Phosphorus Level 2.6 mg/dL (2.6-4.7) Magnesium Level 1.6 mg/dL (1.8-2.4) Assessment and Plan Assessmemt and Plan Problems Medical Problems: (1) Altered mental status Status: Acute (2) UTI (urinary tract infection) Status: Acute Acute metabolic/infectious encephalopathy Acute hypercapnic respiratory failure Constipation Metabolic cephalopathy UTI Plan IV Rocephin IV fluids Trend labs Home meds DVT prophylaxis PT OT Discharge disposition pending Monitor urine output ID consult for recurrent UTI Regular diet CODE STATUS DNR Discussed with RN and SW Disposition inpatient management as above DPOA: Comment Review of Relevant I have reviewed the following items kimberley (where applicable) has been applied. Medications: Current Medications Medications (Trade) Dose Ordered Sig/Kim Route PRN Reason Start Time Stop Time Status Last Admin Dose Admin Ceftriaxone Sodium (Rocephin) 1 gm 1X ONCE IVP 02/12/22 13:00 02/12/22 13:01 DC 02/12/22 12:50 Sodium Chloride 500 ml @ 500 mls/hr 1X ONCE IV 02/12/22 12:30 02/12/22 13:29 DC 02/12/22 12:50 Sodium Chloride 1,000 ml @ 100 mls/hr Q10H IV 02/12/22 16:15 02/12/22 16:48 Enoxaparin Sodium (Lovenox 40mg Syringe) 40 mg Q24H SQ 02/13/22 09:00 02/13/22 08:40 Carvedilol (Coreg) 6.25 mg BIDWMEALS PO 02/13/22 09:00 02/13/22 08:40 Vitamin D (Vitamin D3) 1,000 unit DAILY PO 02/13/22 09:00 02/13/22 08:41 Donepezil HCl (Aricept) 10 mg DAILY PO 02/13/22 09:00 02/13/22 09:43 Haloperidol (Haldol) 2.5 mg BID PO 02/13/22 09:00 02/13/22 08:41 Losartan Potassium (Cozaar) 25 mg DAILY PO 02/13/22 09:00 02/13/22 08:40 Memantine (Namenda) 10 mg BID PO 02/13/22 09:00 02/13/22 08:41 Duloxetine HCl (Cymbalta) 60 mg DAILY PO 02/13/22 09:00 02/13/22 09:43 Justifications for Admission Other Justification Altered mental status. BONITA FORMAN III DO Feb 13, 2022 11:00
--- NOTE | 2022-02-13 12:56 | CONS ---
DATE OF CONSULTATION: 02/13/2022 REQUESTING PHYSICIAN: Dr. Dowd. REASON FOR CONSULTATION: Confusion and recurrent UTI. HISTORY OF PRESENT ILLNESS: This is a 72-year-old female who has advanced dementia who was discharged from the hospital here and she memory is very poor. Denies any nausea, vomiting, diarrhea. Denies any chest pain, shortness of breath, urinary symptoms. She says she feels fine. PAST MEDICAL HISTORY: Positive for advanced dementia. The patient has a history of anxiety, depression, hypertension, hyperlipidemia, PTSD, history of cholecystectomy, hysterectomy, bilateral shoulder replacement. SOCIAL HISTORY: Negative for smoking, alcohol, or illicit drug use. ALLERGIES: LISTED ALLERGIC TO PENICILLIN, SHE HAD HIVES. REVIEW OF SYSTEMS: As in HPI. All other systems reviewed are negative. PHYSICAL EXAMINATION: GENERAL: Alert, oriented female, not in distress. VITAL SIGNS: Stable, afebrile. HEENT: Both pupils are round and reacting. No conjunctival lesion, no lesion in the mouth. NECK: Supple, no JVP, no lymphadenopathy. LUNGS: Clear. HEART: S1, S2, regular. ABDOMEN: Soft, nontender, no organomegaly. EXTREMITIES: No edema, cyanosis. SKIN: Unremarkable. NEUROLOGIC: The patient is alert, awake, able to communicate simple question answers. Memory is extremely poor and have cognitive deficit. LABORATORY DATA: White count is 7.9, hemoglobin 11.1, platelets are normal. BUN and creatinine is normal. Lactic acid was only 1. Urine culture is pending. Urinalysis showed 20-40 wbc's. Blood cultures negative. CT head done, which was unremarkable for any acute changes. Abdominal series was done, which was unremarkable. IMPRESSION: 1. Fluctuating mental status is most likely related to her dementia. To have change in MS from infection, the patient should have some other evidence for infection, i.e., lactic acidosis, fever or leukocytosis, she has nothing. 2. Advanced dementia. 3. Anxiety, depression. 4. Hypertension. RECOMMENDATIONS: Advice any time, they have a question about change in mental status and infection, they should do straight cath, UA and not to urinate in a cup or hat and that way they get accurate information. For the time being antibiotic can be switched over to oral and if they want to use chronic suppression, they can use Macrobid for chronic suppression. Thank you very much, Dr. Dowd for giving me opportunity to participate in this patient's care. JANE DR: Preston TID: [id number] ANAND
[2022-02-13] MEDS ORDERED: cefTRIAXone IV Push 1 GM VIAL. IVP SCH (13:00)
[2022-02-13 15:00] VITALS: BP 112/61
[2022-02-13] MEDS: CEFDINIR 300 MG CAPSULE PO SCH ×2 (15:30→21:19)
[2022-02-13 19:00] VITALS: BP 107/60
[2022-02-13] MEDS: MIRTAZAPINE 15 MG TABLET PO SCH (21:19)
[2022-02-13] MEDS: LACTOBACILLUS RHAMNOSUS GG 1 CAPSULE. PO SCH (21:19)
[2022-02-13] MEDS: ATORVASTATIN CALCIUM 40 MG TABLET. PO SCH (21:20)
[2022-02-13] MEDS: traZODone 100 MG TABLET. PO SCH (21:20)
[2022-02-13 23:00] VITALS: BP 140/77
[2022-02-14 07:00] VITALS: BP 133/69
[2022-02-14] MEDS: ENOXAPARIN 40 MG/0.4 ML SYRINGE. SQ SCH (07:09)
[2022-02-14] MEDS: CARVEDILOL 6.25 MG TABLET. PO SCH ×2 (08:00→17:00)
[2022-02-14] MEDS: IV NORMAL SALINE 1000ML BAG 1,000 ML IV SCH ×2 (08:15→18:15)
[2022-02-14] MEDS: DULoxetine HCL 30 MG CAPSULE.DR PO SCH (09:00)
[2022-02-14] MEDS: MEMANTINE 10 MG TABLET. PO SCH ×2 (09:00→21:05)
[2022-02-14] MEDS: DONEPEZIL HCL 10 MG TABLET. PO SCH (09:00)
[2022-02-14] MEDS: LACTOBACILLUS RHAMNOSUS GG 1 CAPSULE. PO SCH ×2 (09:00→21:05)
[2022-02-14] MEDS: CHOLECALCIFEROL (VITAMIN D3) 1,000 UNIT TABLET PO SCH (09:00)
[2022-02-14] MEDS: LOSARTAN POTASSIUM 25 MG TABLET. PO SCH (09:00)
[2022-02-14] MEDS: CEFDINIR 300 MG CAPSULE PO SCH ×2 (09:00→21:05)
[2022-02-14] MEDS: HALOPERIDOL 5 MG TABLET. PO SCH ×2 (09:00→21:05)
[2022-02-14 09:41] LABS: BASO % 1 % (0-3); EOS # 0.4 x10^3/uL (0.0-0.7); EOS % 5 % (0-3); HEMATOCRIT 35.8 % (36.0-47.0); HEMOGLOBIN 11.5 g/dL (12.0-15.5); LYMPH # 1.1 x10^3/uL (1.0-4.8); LYMPH % 14 % (24-48); MEAN CORPUSCULAR HEMOGLOBIN 29 pg (25-35); MEAN CORPUSCULAR HGB CONC 32 g/dL (31-37); MEAN CORPUSCULAR VOLUME 89 fL (79-100); MONO # 0.6 x10^3/uL (0.0-1.1); MONO % 8 % (0-9); NEUT # 5.7 x10^3/uL (1.8-7.7); NEUT % 73 % (31-73); PLATELET COUNT 237 x10^3/uL (140-400); RED BLOOD COUNT 4.04 x10^6/uL (3.50-5.40); RED CELL DISTRIBUTION WIDTH 13.6 % (11.5-14.5); WHITE BLOOD COUNT 7.8 x10^3/uL (4.0-11.0)
[2022-02-14 09:57] LABS: CALCIUM 9.8 mg/dL (8.5-10.1); CREATININE 0.9 mg/dL (0.6-1.0); GFR 61.9; MAGNESIUM 1.8 mg/dL (1.8-2.4); POTASSIUM 4.3 mmol/L (3.5-5.1)
[2022-02-14 11:00] VITALS: BP 112/67
--- NOTE | 2022-02-14 11:12 | PDOC ---
[employer] PROGRESS NOTE Date of Service DOS: DATE: 02/14/22 TIME: 11:10 Chief Complaint Chief Complaint Acute metabolic/infectious encephalopathy Acute hypercapnic respiratory failure Constipation Metabolic cephalopathy UTI History of Present Illness History of Present Illness 02/14/2022 Patient seen and examined Pleasantly confused extremely weak Discussed with RN Chart reviewed Her is present again today seems to be good support for The patient pulled out her IV again 02/14/2020 Patient seen and examined Her is present and seems to be good support for her Chart reviewed Discussed with RN Discussed with case management Patient apparently pulled her IV out last night She does have IV Rocephin and fluids ordered we are going to put a new IV and get those going again Vitals/I&O Vitals/I&O: Vital Signs Date Time Temp Pulse Resp B/P (MAP) Pulse Ox O2 Delivery O2 Flow Rate FiO2 02/14/22 08:00 Room Air 02/14/22 07:00 98.9 82 19 133/69 (90) 97 98.9 I & O 02/13/22 02/13/22 02/14/22 15:00 23:00 07:00 Intake Total 120 ml Balance 120 ml Physical Exam General: Other (Pleasantly confused) Heart: Regular rate Lungs: Clear Abdomen: Normal bowel sounds Extremities: No clubbing Skin: No rashes Labs Labs: Laboratory Tests Test 02/14/22 09:23 White Blood Count 7.8 x10^3/uL (4.0-11.0) Red Blood Count 4.04 x10^6/uL (3.50-5.40) Hemoglobin 11.5 g/dL (12.0-15.5) Hematocrit 35.8 % (36.0-47.0) Mean Corpuscular Volume 89 fL (79-100) Mean Corpuscular Hemoglobin 29 pg (25-35) Mean Corpuscular Hemoglobin Concent 32 g/dL (31-37) Red Cell Distribution Width 13.6 % (11.5-14.5) Platelet Count 237 x10^3/uL (140-400) Neutrophils (%) (Auto) 73 % (31-73) Lymphocytes (%) (Auto) 14 % (24-48) Monocytes (%) (Auto) 8 % (0-9) Eosinophils (%) (Auto) 5 % (0-3) Basophils (%) (Auto) 1 % (0-3) Neutrophils # (Auto) 5.7 x10^3/uL (1.8-7.7) Lymphocytes # (Auto) 1.1 x10^3/uL (1.0-4.8) Monocytes # (Auto) 0.6 x10^3/uL (0.0-1.1) Eosinophils # (Auto) 0.4 x10^3/uL (0.0-0.7) Basophils # (Auto) 0.0 x10^3/uL (0.0-0.2) Sodium Level 147 mmol/L (136-145) Potassium Level 4.3 mmol/L (3.5-5.1) Chloride Level 107 mmol/L (98-107) Carbon Dioxide Level 30 mmol/L (21-32) Anion Gap 10 (6-14) Blood Urea Nitrogen 16 mg/dL (7-20) Creatinine 0.9 mg/dL (0.6-1.0) Estimated GFR (Cockcroft-Gault) 61.9 Glucose Level 106 mg/dL (70-99) Calcium Level 9.8 mg/dL (8.5-10.1) Magnesium Level 1.8 mg/dL (1.8-2.4) Assessment and Plan Assessmemt and Plan Problems Medical Problems: (1) Altered mental status Status: Acute (2) UTI (urinary tract infection) Status: Acute Acute metabolic/infectious encephalopathy Acute hypercapnic respiratory failure Constipation Metabolic cephalopathy UTI Plan We will replace the IV again and then continue the following semi- IV Rocephin IV fluids Trend labs Home meds DVT prophylaxis PT OT Discharge disposition pending Monitor urine output ID consult for recurrent UTI Regular diet CODE STATUS DNR Discussed with RN and SW Disposition inpatient management as above DPOA: Comment Review of Relevant I have reviewed the following items kimberley (where applicable) has been applied. Medications: Current Medications Medications (Trade) Dose Ordered Sig/Kim Route PRN Reason Start Time Stop Time Status Last Admin Dose Admin Trazodone HCl (Desyrel) 100 mg QHS PO 02/13/22 21:00 02/13/22 21:20 Atorvastatin Calcium (Lipitor) 80 mg QHS PO 02/13/22 21:00 02/13/22 21:20 Mirtazapine (Remeron) 45 mg QHS PO 02/13/22 21:00 02/13/22 21:19 Cefdinir (Omnicef) 300 mg BID PO 02/13/22 13:00 02/13/22 21:19 Lactobacillus Rhamnosus (Culturelle) 1 cap BID PO 02/13/22 21:00 02/13/22 21:19 Justifications for Admission Other Justification Altered mental status. BONITA FORMAN III DO Feb 14, 2022 11:12
--- NOTE | 2022-02-14 12:27 | PDOC ---
Infectious Disease Note Subjective Subjective pt is sleepy, wants to be left alone, wants to says VIVIEN PUGA no n/v/d/fever Vital Sign Vital Signs Vital Signs Date Time Temp Pulse Resp B/P (MAP) Pulse Ox O2 Delivery O2 Flow Rate FiO2 02/14/22 08:00 Room Air 02/14/22 07:00 98.9 82 19 133/69 (90) 97 98.9 Physical Exam PHYSICAL EXAM GENERAL: Alert, oriented female, not in distress. VITAL SIGNS: Stable, afebrile. HEENT: Both pupils are round and reacting. No conjunctival lesion, no lesion in the mouth. NECK: Supple, no JVP, no lymphadenopathy. LUNGS: Clear. HEART: S1, S2, regular. ABDOMEN: Soft, nontender, no organomegaly. EXTREMITIES: No edema, cyanosis. SKIN: Unremarkable. NEUROLOGIC: The patient is alert, awake, able to communicate simple question answers. Memory is extremely poor and have cognitive deficit. Labs Lab Laboratory Tests Test 02/14/22 09:23 White Blood Count 7.8 x10^3/uL (4.0-11.0) Red Blood Count 4.04 x10^6/uL (3.50-5.40) Hemoglobin 11.5 g/dL (12.0-15.5) Hematocrit 35.8 % (36.0-47.0) Mean Corpuscular Volume 89 fL (79-100) Mean Corpuscular Hemoglobin 29 pg (25-35) Mean Corpuscular Hemoglobin Concent 32 g/dL (31-37) Red Cell Distribution Width 13.6 % (11.5-14.5) Platelet Count 237 x10^3/uL (140-400) Neutrophils (%) (Auto) 73 % (31-73) Lymphocytes (%) (Auto) 14 % (24-48) Monocytes (%) (Auto) 8 % (0-9) Eosinophils (%) (Auto) 5 % (0-3) Basophils (%) (Auto) 1 % (0-3) Neutrophils # (Auto) 5.7 x10^3/uL (1.8-7.7) Lymphocytes # (Auto) 1.1 x10^3/uL (1.0-4.8) Monocytes # (Auto) 0.6 x10^3/uL (0.0-1.1) Eosinophils # (Auto) 0.4 x10^3/uL (0.0-0.7) Basophils # (Auto) 0.0 x10^3/uL (0.0-0.2) Sodium Level 147 mmol/L (136-145) Potassium Level 4.3 mmol/L (3.5-5.1) Chloride Level 107 mmol/L (98-107) Carbon Dioxide Level 30 mmol/L (21-32) Anion Gap 10 (6-14) Blood Urea Nitrogen 16 mg/dL (7-20) Creatinine 0.9 mg/dL (0.6-1.0) Estimated GFR (Cockcroft-Gault) 61.9 Glucose Level 106 mg/dL (70-99) Calcium Level 9.8 mg/dL (8.5-10.1) Magnesium Level 1.8 mg/dL (1.8-2.4) Micro Microbiology 02/12/22 Urine Culture - Preliminary, Resulted Escherichia Coli 02/12/22 Blood Culture - Preliminary, Resulted NO GROWTH AFTER 2 DAYS Objective Assessment IMPRESSION: 1. Fluctuating mental status is most likely related to her dementia. To have change in MS from infection, the patient should have some other evidence for infection, i.e., lactic acidosis, fever or leukocytosis, she has nothing. 2. Advanced dementia. 3. Anxiety, depression. 4. Hypertension. Plan Plan of Care po cefdinir pt/ot palliative care ZOHRHE MILLER MD Feb 14, 2022 12:27
[2022-02-14] MEDS: ACETAMINOPHEN 325 MG TABLET. PO PRN (13:40)
[2022-02-14 15:00] VITALS: BP 112/58
[2022-02-14 19:00] VITALS: BP 111/63
[2022-02-14] MEDS: MIRTAZAPINE 15 MG TABLET PO SCH (21:05)
[2022-02-14] MEDS: traZODone 100 MG TABLET. PO SCH (21:05)
[2022-02-14] MEDS: ATORVASTATIN CALCIUM 40 MG TABLET. PO SCH (21:05)
[2022-02-14 23:12] VITALS: BP 103/56
[2022-02-15 03:00] VITALS: BP 119/53
[2022-02-15] MEDS: IV NORMAL SALINE 1000ML BAG 1,000 ML IV SCH ×2 (04:15→11:20)
[2022-02-15 07:00] VITALS: BP 125/59
[2022-02-15] MEDS: ENOXAPARIN 40 MG/0.4 ML SYRINGE. SQ SCH (07:09)
[2022-02-15] MEDS: LACTOBACILLUS RHAMNOSUS GG 1 CAPSULE. PO SCH ×2 (07:43→20:36)
[2022-02-15] MEDS: CEFDINIR 300 MG CAPSULE PO SCH ×2 (07:43→20:36)
[2022-02-15] MEDS: HALOPERIDOL 5 MG TABLET. PO SCH ×2 (07:43→20:37)
[2022-02-15] MEDS: CHOLECALCIFEROL (VITAMIN D3) 1,000 UNIT TABLET PO SCH (07:43)
[2022-02-15] MEDS: DONEPEZIL HCL 10 MG TABLET. PO SCH (07:43)
[2022-02-15] MEDS: CARVEDILOL 6.25 MG TABLET. PO SCH ×2 (07:44→17:45)
[2022-02-15] MEDS: MEMANTINE 10 MG TABLET. PO SCH ×2 (07:44→20:36)
[2022-02-15] MEDS: LOSARTAN POTASSIUM 25 MG TABLET. PO SCH (07:44)
[2022-02-15] MEDS: DULoxetine HCL 30 MG CAPSULE.DR PO SCH (07:45)
[2022-02-15 08:16] LABS: BASO # 0.1 x10^3/uL (0.0-0.2); BASO % 1 % (0-3); EOS # 0.5 x10^3/uL (0.0-0.7); EOS % 7 % (0-3); HEMOGLOBIN 11.2 g/dL (12.0-15.5); LYMPH # 1.5 x10^3/uL (1.0-4.8); LYMPH % 23 % (24-48); MEAN CORPUSCULAR HEMOGLOBIN 29 pg (25-35); MEAN CORPUSCULAR HGB CONC 33 g/dL (31-37); MEAN CORPUSCULAR VOLUME 89 fL (79-100); MONO # 0.6 x10^3/uL (0.0-1.1); MONO % 10 % (0-9); NEUT # 3.7 x10^3/uL (1.8-7.7); NEUT % 59 % (31-73); PLATELET COUNT 230 x10^3/uL (140-400); RED BLOOD COUNT 3.83 x10^6/uL (3.50-5.40); RED CELL DISTRIBUTION WIDTH 13.8 % (11.5-14.5); WHITE BLOOD COUNT 6.3 x10^3/uL (4.0-11.0)
[2022-02-15 08:34] LABS: GFR 54.8; MAGNESIUM 1.9 mg/dL (1.8-2.4); POTASSIUM 4.4 mmol/L (3.5-5.1)
[2022-02-15] MEDS ORDERED: CEFD300C PO (10:13)
--- NOTE | 2022-02-15 10:13 | SNU/HH DC ---
DISCHARGE ORDERS DISCHARGE INFORMATION: FINAL DIAGNOSIS Problems Medical Problems: (1) Altered mental status Status: Acute (2) UTI (urinary tract infection) Status: Acute CONDITION ON DISCHARGE: Stable CODE STATUS: Code Status: DNR/DNI MCFP: SNF STAY <30 DAYS: Yes HOSPICE: HOSPICE: No HOSPICE EVAL & TREAT: No LTAC: ADMIT TO LTAC: No POST DISCHARGE ORDERS: ACTIVITY ORDERS: Resume previous activity WEIGHT BEARING STATUS: As tolerated DIET AFTER DISCHARGE: Cardiac FOLLOW-UP: LAB ORDERS FOR FOLLOW-UP: CBC, CMP TREATMENT/EQUIPMENT ORDERS: Physical Therapy For: Evalulation/Treatment Occupational Therapy For: Evaluation/Treatment DISCHARGE MEDICATIONS: Home Meds Active Scripts Cefdinir (CEFDINIR) 300 Mg Capsule, 300 MG PO BID for . for 7 Days, #14 CAP Prov:CASTLE,NIAL K III DO 02/15/22 Reported Medications Cholecalciferol (Vitamin D3) (Vitamin D3 ) 25 Mcg Tablet, 50 MCG PO DAILY for SUPPLEMENT, TAB 1,000 UNITS = 25 MCG 01/25/22 Trazodone Hcl (TRAZODONE HCL) 100 Mg Tablet, 1 TAB PO QHS for , #30 TAB 01/25/22 Memantine Hcl (NAMENDA) 10 Mg Tablet, 1 TAB PO BID for , #180 TAB 1 Refill 01/25/22 Mirtazapine (MIRTAZAPINE) 45 Mg Tablet, 1 TAB PO QHS for , #30 TAB 1 Refill 01/25/22 Melatonin (MELATONIN) 10 Mg Capsule, 1 CAP PO QHS for sleep for 30 Days, #30 CAP 0 Refills 01/25/22 Losartan Potassium (COZAAR ) 25 Mg Tablet, 25 MG PO DAILY for HYPERTENSION, TAB 01/25/22 Haloperidol (HALOPERIDOL) 5 Mg Tablet, 0.5 TAB PO BID for , #30 TAB 1 Refill 01/25/22 Colloidal Oatmeal (Eucerin Eczema Relief) 226 Gm Cream..g., 1 JUDY TP PRN DAILY PRN for DRY SKIN / SCALING for 30 Days, #226 GM 0 Refills 01/25/22 Duloxetine Hcl (DULOXETINE HCL) 60 Mg Capsule.dr, 60 MG PO DAILY for , CAP 01/25/22 Donepezil Hcl (DONEPEZIL HCL) 10 Mg Tablet, 1 TAB PO DAILY for , #90 TAB 1 Refill 01/25/22 Carvedilol (CARVEDILOL ) 6.25 Mg Tablet, 6.25 MG PO BIDWMEALS for CARDIAC, TAB 01/25/22 Atorvastatin Calcium (Atorvastatin Calcium) 80 Mg Tablet, 80 MG PO QHS for FOR HIGH CHOLESTEROL, TAB 01/25/22 Acetaminophen (ACETAMINOPHEN) 325 Mg Tablet, 2 TAB PO PRN Q6HRS PRN for pain or fever for 30 Days, #30 TAB 0 Refills 01/25/22 BONITA FORMAN III DO Feb 15, 2022 10:13
[2022-02-15 11:00] VITALS: BP 108/54
--- NOTE | 2022-02-15 12:17 | DS ---
DATE OF DISCHARGE: 02/15/2022 ADMITTING DIAGNOSES: Metabolic encephalopathy, urinary tract infection, hypercapnia, respiratory failure, constipation. DISCHARGE DIAGNOSES: Resolving metabolic encephalopathy, resolving urinary tract infection, resolving constipation, resolving hypercapnic respiratory failure. HOSPITAL COURSE: The patient is a pleasant elderly female who presented with hypercapnic respiratory failure and metabolic encephalopathy. She was noted to have UTI. We gave her fluids and antibiotics, adjusted her meds, resumed physical therapy and occupational therapy. Today, I saw and examined her. She is doing great, wants to go to skilled. We plan to discharge to alf. DISPOSITION: correction. ACTIVITY: As tolerated. DIET: Low sodium. DISCHARGE MEDICATIONS: Please see the MRAD. TOTAL TIME: 34 minutes. TANISAH/JERAMIE DR: Abhinav TID: [id number]
--- NOTE | 2022-02-15 12:43 | PDOC ---
Infectious Disease Note Subjective Subjective pt is feeling good, eating ROS ROS no n/v/d/sob Vital Sign Vital Signs Vital Signs Date Time Temp Pulse Resp B/P (MAP) Pulse Ox O2 Delivery O2 Flow Rate FiO2 02/15/22 11:00 97.8 83 18 108/54 (72) 97 Room Air 97.8 Physical Exam PHYSICAL EXAM GENERAL: Alert, oriented female, not in distress. VITAL SIGNS: Stable, afebrile. HEENT: Both pupils are round and reacting. No conjunctival lesion, no lesion in the mouth. NECK: Supple, no JVP, no lymphadenopathy. LUNGS: Clear. HEART: S1, S2, regular. ABDOMEN: Soft, nontender, no organomegaly. EXTREMITIES: No edema, cyanosis. SKIN: Unremarkable. NEUROLOGIC: The patient is alert, awake, able to communicate simple question answers. Memory is extremely poor and have cognitive deficit. Labs Lab Laboratory Tests Test 02/14/22 16:15 02/15/22 07:40 02/15/22 11:08 SARS-CoV-2 Antigen (Rapid) Negative (NEGATIVE) White Blood Count 6.3 x10^3/uL (4.0-11.0) Red Blood Count 3.83 x10^6/uL (3.50-5.40) Hemoglobin 11.2 g/dL (12.0-15.5) Hematocrit 34.0 % (36.0-47.0) Mean Corpuscular Volume 89 fL (79-100) Mean Corpuscular Hemoglobin 29 pg (25-35) Mean Corpuscular Hemoglobin Concent 33 g/dL (31-37) Red Cell Distribution Width 13.8 % (11.5-14.5) Platelet Count 230 x10^3/uL (140-400) Neutrophils (%) (Auto) 59 % (31-73) Lymphocytes (%) (Auto) 23 % (24-48) Monocytes (%) (Auto) 10 % (0-9) Eosinophils (%) (Auto) 7 % (0-3) Basophils (%) (Auto) 1 % (0-3) Neutrophils # (Auto) 3.7 x10^3/uL (1.8-7.7) Lymphocytes # (Auto) 1.5 x10^3/uL (1.0-4.8) Monocytes # (Auto) 0.6 x10^3/uL (0.0-1.1) Eosinophils # (Auto) 0.5 x10^3/uL (0.0-0.7) Basophils # (Auto) 0.1 x10^3/uL (0.0-0.2) Sodium Level 143 mmol/L (136-145) Potassium Level 4.4 mmol/L (3.5-5.1) Chloride Level 107 mmol/L (98-107) Carbon Dioxide Level 32 mmol/L (21-32) Anion Gap 4 (6-14) Blood Urea Nitrogen 27 mg/dL (7-20) Creatinine 1.0 mg/dL (0.6-1.0) Estimated GFR (Cockcroft-Gault) 54.8 Glucose Level 89 mg/dL (70-99) Calcium Level 10.0 mg/dL (8.5-10.1) Magnesium Level 1.9 mg/dL (1.8-2.4) Glucose (Fingerstick) 164 mg/dL (70-99) Micro Microbiology 02/12/22 Urine Culture - Preliminary, Resulted Escherichia Coli 02/12/22 Blood Culture - Preliminary, Resulted NO GROWTH AFTER 2 DAYS Objective Assessment IMPRESSION: 1. Fluctuating mental status is most likely related to her dementia. To have change in MS from infection, the patient should have some other evidence for infection, i.e., lactic acidosis, fever or leukocytosis, she has nothing. 2. Advanced dementia. 3. Anxiety, depression. 4. Hypertension. Plan Plan of Care po cefdinir pt/ot d/w sig other ZOHREH MILLER MD Feb 15, 2022 12:43
--- NOTE | 2022-02-15 13:37 | NUR ---
Report given to Elizabet GAR
--- NOTE | 2022-02-15 13:40 | NUR ---
Assumed patient care at this time. Pt in bed denies any needs at this time. Family at bedside. Call light within reach.
[2022-02-15 15:00] VITALS: BP 92/49
[2022-02-15 19:00] VITALS: BP 98/58
[2022-02-15] MEDS: ATORVASTATIN CALCIUM 40 MG TABLET. PO SCH (20:36)
[2022-02-15] MEDS: traZODone 100 MG TABLET. PO SCH (20:37)
[2022-02-15] MEDS: MIRTAZAPINE 15 MG TABLET PO SCH (20:38)
--- NOTE | 2022-02-15 22:05 | NUR ---
Report rcvd from [facility]; transfer of patient care at this time.
[2022-02-15 23:03] VITALS: BP 109/50
[2022-02-16] MEDS: IV NORMAL SALINE 1000ML BAG 1,000 ML IV SCH ×2 (00:15→10:13)
[2022-02-16 03:00] VITALS: BP 130/78
[2022-02-16 07:00] VITALS: BP 147/72
[2022-02-16] MEDS: ENOXAPARIN 40 MG/0.4 ML SYRINGE. SQ SCH ×3 (09:00→10:14)
[2022-02-16] MEDS ORDERED: LORA-434 PO (10:00)
--- NOTE | 2022-02-16 10:01 | SNU/HH DC ---
DISCHARGE ORDERS DISCHARGE INFORMATION: FINAL DIAGNOSIS Problems Medical Problems: (1) Altered mental status Status: Acute (2) UTI (urinary tract infection) Status: Acute CONDITION ON DISCHARGE: Stable CODE STATUS: Code Status: DNR/DNI RETIREMENT: SNF STAY <30 DAYS: Yes HOSPICE: HOSPICE: No HOSPICE EVAL & TREAT: No LTAC: ADMIT TO LTAC: No POST DISCHARGE ORDERS: ACTIVITY ORDERS: Resume previous activity WEIGHT BEARING STATUS: As tolerated DIET AFTER DISCHARGE: Cardiac FOLLOW-UP: LAB ORDERS FOR FOLLOW-UP: CBC, CMP TREATMENT/EQUIPMENT ORDERS: Physical Therapy For: Evalulation/Treatment Occupational Therapy For: Evaluation/Treatment DISCHARGE MEDICATIONS: Home Meds Active Scripts Lorazepam (ATIVAN) 1 Mg Tablet, 1 MG PO BID for Anxiety/Aggitation for 14 Days, #28 TAB Prov:CASTLE,NIAL K III DO 02/16/22 Cefdinir (CEFDINIR) 300 Mg Capsule, 300 MG PO BID for . for 7 Days, #14 CAP Prov:CASTLE,NIAL K III DO 02/15/22 Reported Medications Cholecalciferol (Vitamin D3) (Vitamin D3 ) 25 Mcg Tablet, 50 MCG PO DAILY for SUPPLEMENT, TAB 1,000 UNITS = 25 MCG 01/25/22 Trazodone Hcl (TRAZODONE HCL) 100 Mg Tablet, 1 TAB PO QHS for , #30 TAB 01/25/22 Memantine Hcl (NAMENDA) 10 Mg Tablet, 1 TAB PO BID for , #180 TAB 1 Refill 01/25/22 Mirtazapine (MIRTAZAPINE) 45 Mg Tablet, 1 TAB PO QHS for , #30 TAB 1 Refill 01/25/22 Melatonin (MELATONIN) 10 Mg Capsule, 1 CAP PO QHS for sleep for 30 Days, #30 CAP 0 Refills 01/25/22 Losartan Potassium (COZAAR ) 25 Mg Tablet, 25 MG PO DAILY for HYPERTENSION, TAB 01/25/22 Colloidal Oatmeal (Eucerin Eczema Relief) 226 Gm Cream..g., 1 JUDY TP PRN DAILY PRN for DRY SKIN / SCALING for 30 Days, #226 GM 0 Refills 01/25/22 Duloxetine Hcl (DULOXETINE HCL) 60 Mg Capsule.dr, 60 MG PO DAILY for , CAP 01/25/22 Donepezil Hcl (DONEPEZIL HCL) 10 Mg Tablet, 1 TAB PO DAILY for , #90 TAB 1 Refill 01/25/22 Carvedilol (CARVEDILOL ) 6.25 Mg Tablet, 6.25 MG PO BIDWMEALS for CARDIAC, TAB 01/25/22 Atorvastatin Calcium (Atorvastatin Calcium) 80 Mg Tablet, 80 MG PO QHS for FOR HIGH CHOLESTEROL, TAB 01/25/22 Acetaminophen (ACETAMINOPHEN) 325 Mg Tablet, 2 TAB PO PRN Q6HRS PRN for pain or fever for 30 Days, #30 TAB 0 Refills 01/25/22 BONITA FORMAN III DO Feb 16, 2022 10:01
--- NOTE | 2022-02-16 10:04 | PDOC ---
[employer] PROGRESS NOTE Date of Service DOS: DATE: 02/16/22 TIME: 10:02 Chief Complaint Chief Complaint Acute metabolic/infectious encephalopathy Acute hypercapnic respiratory failure Constipation Metabolic cephalopathy UTI History of Present Illness History of Present Illness 02/16/2022 Patient seen and examined Discussed with RN Discussed with case management Chart reviewed She is scheduled for discharge to [facility] unit later today 02/14/2022 Patient seen and examined Pleasantly confused extremely weak Discussed with RN Chart reviewed Her is present again today seems to be good support for The patient pulled out her IV again 02/14/2020 Patient seen and examined Her is present and seems to be good support for her Chart reviewed Discussed with RN Discussed with case management Patient apparently pulled her IV out last night She does have IV Rocephin and fluids ordered we are going to put a new IV and get those going again Vitals/I&O Vitals/I&O: Vital Signs Date Time Temp Pulse Resp B/P (MAP) Pulse Ox O2 Delivery O2 Flow Rate FiO2 02/16/22 07:00 98.3 72 18 147/72 (97) 98 Room Air 98.3 I & O 02/15/22 02/15/22 02/16/22 15:00 23:00 07:00 Intake Total 100 ml 400 ml Balance 100 ml 400 ml Physical Exam General: No acute distress Heart: Regular rate Lungs: Clear Abdomen: Normal bowel sounds Extremities: No clubbing Skin: No rashes Labs Labs: Laboratory Tests Test 02/15/22 11:08 Glucose (Fingerstick) 164 mg/dL (70-99) Assessment and Plan Assessmemt and Plan Problems Medical Problems: (1) Altered mental status Status: Acute (2) UTI (urinary tract infection) Status: Acute Acute metabolic/infectious encephalopathy Acute hypercapnic respiratory failure Constipation Metabolic cephalopathy UTI Plan She is scheduled for discharge to [facility] unit later today For now continue the following: DVT prophylaxis PT OT Regular diet Home meds CODE STATUS DNR Discussed with RN and DRE DPOA: See dictation Comment Review of Relevant I have reviewed the following items kimberley (where applicable) has been applied. Justifications for Admission Other Justification Altered mental status. BONITA FORMAN III, DO Feb 16, 2022 10:04
[2022-02-16] MEDS: MEMANTINE 10 MG TABLET. PO SCH (10:07)
[2022-02-16] MEDS: CARVEDILOL 6.25 MG TABLET. PO SCH ×2 (10:07→17:00)
[2022-02-16] MEDS: LACTOBACILLUS RHAMNOSUS GG 1 CAPSULE. PO SCH (10:07)
[2022-02-16] MEDS: CHOLECALCIFEROL (VITAMIN D3) 1,000 UNIT TABLET PO SCH (10:08)
[2022-02-16] MEDS: DONEPEZIL HCL 10 MG TABLET. PO SCH (10:08)
[2022-02-16] MEDS: HALOPERIDOL 5 MG TABLET. PO SCH (10:08)
[2022-02-16] MEDS: CEFDINIR 300 MG CAPSULE PO SCH (10:08)
[2022-02-16] MEDS: LOSARTAN POTASSIUM 25 MG TABLET. PO SCH (10:08)
[2022-02-16] MEDS: ACETAMINOPHEN 325 MG TABLET. PO PRN (10:09)
[2022-02-16] MEDS: DULoxetine HCL 30 MG CAPSULE.DR PO SCH (10:09)
[2022-02-16 11:00] VITALS: BP 124/76
--- NOTE | 2022-02-16 13:51 | PDOC ---
Infectious Disease Note Subjective Subjective pt is feeling good, eating ROS ROS No nausea vomiting diarrhea Vital Sign Vital Signs Vital Signs Date Time Temp Pulse Resp B/P (MAP) Pulse Ox O2 Delivery O2 Flow Rate FiO2 02/16/22 11:00 98.2 80 16 124/76 (92) 97 Room Air 98.2 Physical Exam PHYSICAL EXAM GENERAL: Alert, oriented female, not in distress. VITAL SIGNS: Stable, afebrile. HEENT: Both pupils are round and reacting. No conjunctival lesion, no lesion in the mouth. NECK: Supple, no JVP, no lymphadenopathy. LUNGS: Clear. HEART: S1, S2, regular. ABDOMEN: Soft, nontender, no organomegaly. EXTREMITIES: No edema, cyanosis. SKIN: Unremarkable. NEUROLOGIC: The patient is alert, awake, able to communicate simple question answers. Memory is extremely poor and have cognitive deficit. Labs Micro Microbiology 02/12/22 Urine Culture - Preliminary, Resulted Escherichia Coli 02/12/22 Blood Culture - Preliminary, Resulted NO GROWTH AFTER 2 DAYS Objective Assessment IMPRESSION: 1. Fluctuating mental status is most likely related to her dementia. To have change in MS from infection, the patient should have some other evidence for infection, i.e., lactic acidosis, fever or leukocytosis, she has nothing. 2. Advanced dementia. 3. Anxiety, depression. 4. Hypertension. Plan Plan of Care po cefdinir pt/ot d/w sig other ZOHREH MILLER MD Feb 16, 2022 13:51
[2022-02-16 15:00] VITALS: BP 104/63
[2022-02-16 17:00] VITALS: BP 98/43
--- NOTE | 2022-02-16 19:11 | NUR ---
Patient discharged to [facility]. Taken out by wheelchair. Accompanied by friend. Tried calling report to [facility]. No answer. Left message for them to call back.
== END 2022-02-16 17:30 | DRG 689 ==
LOC: ER 10:06 → 4 NORTH 14:25
PROVIDERS: ADMIT Internal Medicine; ATTEND Internal Medicine
DX: N39.0 Urinary tract infection, site not specified (principal); J96.02 Acute respiratory failure with hypercapnia; G93.41 Metabolic encephalopathy; K59.00 Constipation, unspecified; E78.5 Hyperlipidemia, unspecified; F02.80 Dementia in other diseases classified elsewhere, unspecified severity, without behavioral disturbance, psychotic disturbance, mood disturbance, and anxiety; F32.A Depression, unspecified; F43.10 Post-traumatic stress disorder, unspecified; G30.9 Alzheimer's disease, unspecified; I10 Essential (primary) hypertension; Z96.611 Presence of right artificial shoulder joint; Z96.612 Presence of left artificial shoulder joint; Z20.822 Contact with and (suspected) exposure to COVID-19; Z66 Do not resuscitate; Z87.440 Personal history of urinary (tract) infections; Z90.49 Acquired absence of other specified parts of digestive tract; Z90.710 Acquired absence of both cervix and uterus; Z88.0 Allergy status to penicillin
CPT/HCPCS: 36415; 70450; 74022; 80048; 80053; 80307; 81001; 82803; 82962; 83605; 83735; 83880; 84100; 84484; 85025; 87040; 87077; 87086; 87186; 87426; 93005; 96361; 96374; J0696; J1650; J7030; J7040; U0003; 92610-GN; 97110-GP; 97116-GP; 97530-GO; 97535-GO; 99285-25; G0378